=== PATIENT | female | born 1955 | race Caucasian/White ===

== ENCOUNTER 2016-06-30 07:08 | Inpatient (IN) | payer OTHER ==
[2016-06-30] VITALS (18 sets, daily range): BP systolic 55–73; BP diastolic 26–56; PULSE 57–83; RESP 14–26; TEMP 96.9; Ht 157.5 cm; Wt 99.1 kg
[~2016-06-30] VITALS: Ht 157.5 cm; Wt 99.1 kg
[~2016-06-30 07:08] MED LIST: COLE625T2 PO; GLIP-95 PO; NAPR-688 PO; SITA1TAB7 PO; TRIBENZOR; ZETIA
[2016-06-30] MEDS ORDERED: ONDANSETRON 4 MG INJ IV STA (07:20)
[2016-06-30 08:09] LABS: ADD SCAN DIFF NO
--- NOTE | 2016-06-30 08:10 | RADRPT ---
PROCEDURE: XR Chest. CLINICAL INDICATION: Shortness of breath. Upper GI bleed. TECHNIQUE: Single frontal view. COMPARISON: None. FINDINGS: The lungs are clear. The heart size is normal. There is no pleural effusion. There is no pneumothorax. IMPRESSION: 1. Normal chest radiograph. RPTAT: QQ .Partha Sue MD, MD Date Time Electronically viewed and signed by .Partha Sue MD, on 06/30/2016 08:10 .R/
[2016-06-30] MEDS ORDERED: SOD CHLORIDE 0.9% 1,000 ML IV STA ×3 (08:12→18:51)
[2016-06-30 08:13] LABS: ABNORMAL IP MESSAGE 1; BASOPHILS % 0.1 % (0.0-2.0); EOSINOPHILS # 0.1 10^3/ul (0.0-0.5); EOSINOPHILS % 0.9 % (0.0-7.0); HEMATOCRIT 14.3 % (37.0-47.0); LYMPHOCYTES # 5.1 10^3/ul (0.8-2.9); LYMPHOCYTES % 43.3 % (15.0-51.0); MEAN CORPUSCULAR VOLUME 89.4 fl (82.0-101.0); MEAN PLATELET VOLUME 10.1 fl (7.4-10.4); MONOCYTE # 1.2 10^3/ul (0.3-0.9); MONOCYTES % 10.3 % (0.0-11.0); NEUTROPHIL # 5.2 10^3/ul (1.6-7.5); NEUTROPHILS % 44.2 % (39.0-77.0); NUCLEATED RED BLOOD CELLS # 0.1 10^3/ul (0.0-0.0); NUCLEATED RED BLOOD CELLS% 1.1 /100WBC (0.0-0.0); PLATELET COUNT 267 10^3/UL (140-415); RED CELL DISTRIBUTION WIDTH 18.9 % (11.5-14.5); WHITE BLOOD COUNT 11.7 10^3/ul (4.8-10.8)
[2016-06-30] MEDS ORDERED: SOD CHLORIDE 0.9% 250 ML IV ONE (08:22)
[2016-06-30 08:34] LABS: INR 1.38; PT RATIO 1.3
[2016-06-30 08:35] LABS: PARTIAL THROMBOPLASTIN TIME 23.6 Sec (25.0-35.0)
[2016-06-30 08:38] LABS: ALANINE AMINOTRANSFERASE 87 IU/L (13-69); ALBUMIN 2.2 g/dl (3.3-4.9); ALBUMIN/GLOBULIN RATIO 0.68; ALKALINE PHOSPHATASE 324 IU/L (42-121); ANION GAP 17 (8-16); ASPARTATE AMINO TRANSFERASE 74 IU/L (15-46); BILIRUBIN,INDIRECT 0.1 mg/dl (0-1.1); BILIRUBIN,TOTAL 0.1 mg/dl (0.2-1.3); BLOOD UREA NITROGEN 13 mg/dl (7-20); CALCIUM 8.2 mg/dl (8.4-10.2); CARBON DIOXIDE 12 mmol/L (21-31); CHLORIDE 110 mmol/L (97-110); GLUCOSE 293 mg/dl (70-220); POTASSIUM 4.8 mmol/L (3.5-5.1); SODIUM 134 mmol/L (135-144); TOTAL PROTEIN 5.4 g/dl (6.1-8.1)
[2016-06-30 08:51] LABS: TROPONIN-I < 0.012 ng/ml (0.00-0.12)
[2016-06-30] MEDS ORDERED: SITA1TAB5 PO (09:22)
[2016-06-30] MEDS ORDERED: OLME1TAB29 PO (09:23)
[2016-06-30] MEDS ORDERED: EZET10TA3 PO (09:23)
--- NOTE | 2016-06-30 09:50 | RADRPT ---
PROCEDURE: CT Abdomen and Pelvis without contrast. CLINICAL INDICATION: Epigastric pain, nausea TECHNIQUE: CT of the abdomen and pelvis was performed on a multi-detector scanner without IV contr ast. Coronal and sagittal images were reformatted from the axial data set. One or more of the foll owing dose reduction techniques were used: automated exposure control, adjustment of the mA and/or kV according to patient size, use of iterative reconstruction technique. CTDI = 20.18 mGy. DLP = 11 56.49 mGy-cm. COMPARISON: None. FINDINGS: CT abdomen: The lung bases are clear. The heart size is normal, without pericardial effusion. Coronary arteria l calcifications are noted. The liver is cirrhotic. Gallbladder is surgically absent. Biliary samina e, pancreas, spleen, adrenal glands and kidneys are unremarkable except for a benign left renal cyst . No urolithiasis or obstructive uropathy is identified. The stomach is moderately distended and debris filled. Edema is noted adjacent to second and third portion of the duodenum, with question of wall thickening in this area. Prominent adjacent lymph no cherrie are seen measuring up to 16 mm in short axis diameter (3-83). The aorta is of normal caliber. There is no periaortic lymphadenopathy. CT pelvis: Small amount of ascites is noted. No bowel obstruction, free intraperitoneal air or abscess is iden tified. There is no diverticulosis, diverticulitis, or colitis. The appendix is well visualized an d normal. Urinary bladder is grossly unremarkable. Calcified uterine fibroids are seen measuring u p to 4 cm. No pelvic lymphadenopathy is identified. The surrounding osseous structures are remarkable for degenerative spondylosis of the spine. No ost eolytic or osteoblastic lesion is detected. Old, healed left-sided rib fractures are incidentally no fabiana. IMPRESSION: 1. Edema is seen adjacent to the second and third portion of the duodenum, with question of associa fabiana duodenal wall thickening. Prominent adjacent lymph nodes are noted. Proximally, the stomach is moderately distended and debris filled. Underlying duodenal mass/neoplasm, duodenitis, or duodenal ulcer disease is not excluded. Consider contrast enhanced CT and/or endoscopy for further evaluatio n. 2. The liver is cirrhotic. Small amount of ascites is present. 3. Gallbladder is surgically absent. 4. Coronary arterial calcifications are noted. 5. Calcified uterine fibroids are seen measuring up to 4 cm. RPTAT: EE .Sedrick Garg MD, MD Date Time Electronically viewed and signed by .Sedrick Garg MD, MD on 06/30/2016 09:49 .R/
[2016-06-30] MEDS ORDERED: INSULIN HUMAN REGULAR 100 UNIT in SOD CHLORIDE 0.9% 99 ML IV STA ×2 (09:59→11:16)
[2016-06-30] MEDS ORDERED: LACTATED RINGER'S 1,000 ML IV STA (09:59)
[2016-06-30] MEDS ORDERED: DEXTROSE 50% 50 ML SYRINGE IV PRN ×4 (10:30→15:30)
[2016-06-30] MEDS ORDERED: GLUCOSE GEL 15 GRAM TUBE PO PRN ×2 (10:30)
[2016-06-30] MEDS ORDERED: GLUCAGON 1 MG INJ IM PRN (10:30)
[2016-06-30] MEDS ORDERED: GLUCOSE GEL 15 GRAM TUBE BUCCAL PRN (10:30)
--- NOTE | 2016-06-30 10:44 | ERA ---
ER Documentation Chief Complaint Date/Time DATE: 06/30/16 TIME: 10:42 Chief Complaint VERY WEAK; MSHORTNESS OF BREATH, PALE, HX OF DIABETES HPI Patient is a 60-year-old female with hypertension and diabetes who presents with shortness of breath. She also feels diffusely weak. She took her normal medicines this morning. The symptoms started this morning. She has no pain. She has nausea and vomiting. She is pale but denies bleeding. She has no fever no cough. Upon review of old medical record she had one previous visit in 2011. ROS All systems reviewed and are negative except as per history of present illness. Medications Home Meds Reported Medications Zpkxezhshl-Wimbevjofz-IYGX (Tribenzor) 20-5-12.5 Mg Tablet, 1 TAB PO DAILY, TAB 06/30/16 Ezetimibe* (Zetia*) 10 Mg Tablet, 10 MG PO HS, TAB 06/30/16 Sitagliptin Phos/Metformin HCl (Janumet 50-1,000 mg Tablet) 1 Each Tablet, 1 EACH PO BID, TAB 06/30/16 Naproxen* (Naproxen*) 500 Mg Tablet, 500 MG PO BID 01/27/12 Colesevelam Hcl* (Welchol*) 625 Mg Tablet, 625 MG PO TID 01/27/12 Glipizide* (Glipizide*) 10 Mg Tablet, 10 MG PO BID 01/27/12 Discontinued Reported Medications [Zetia] No Conflict Check, 10 DAILY 01/27/12 [Tribenzor] No Conflict Check, 20 DAILY 01/27/12 Sitagliptin Phos-Metformin Hcl (Janumet) 1 Tab Tablet, 1 TAB PO BID 01/27/12 Allergies Allergies: Coded Allergies: No Known Drug Allergies (Verified Allergy, Unknown, 01/27/12) PMhx/Soc History of Surgery: Yes (S/P CHOLECYSTECTOMY) Anesthesia Reaction: No Hx Neurological Disorder: No Hx Respiratory Disorders: No Hx Cardiac Disorders: No Hx Psychiatric Problems: No Hx Miscellaneous Medical Probl: Yes (FATTY LIVER) Hx Alcohol Use: No Hx Substance Use: No Hx Tobacco Use: No Smoking Status: Never smoker FmHx Family History: No coronary disease Physical Exam Vitals Vital Signs Date Time Temp Pulse Resp B/P Pulse Ox O2 Delivery O2 Flow Rate FiO2 06/30/16 10:20 85 18 100/45 100 Room Air 5/2/17 10:10 97.7 83 18 106/45 100 Room Air 06/30/16 09:20 18 95/51 100 Room Air 06/30/16 09:00 18 106/49 100 Room Air 06/30/16 08:24 18 90/48 100 Room Air 06/30/16 07:10 98.0 97 19 104/51 100 Physical Exam Const: Moderate distress Head: Atraumatic Eyes: Pale conjunctivae ENT: Normal External Ears, Nose and Mouth. Neck: Full range of motion..~ No meningismus. Resp: Decreased breath sounds bilaterally Cardio: Regular rate and rhythm, no murmurs Abd: Soft, non tender, non distended. Normal bowel sounds Skin: Pale Back: No midline or flank tenderness Ext: No cyanosis, or edema Neur: Awake and alert Psych: Normal Mood and Affect Result Diagram: 06/30/16 0748 06/30/16 0748 Results 24 hrs Laboratory Tests Test 06/30/16 07:48 White Blood Count 11.710^3/ul Red Blood Count 1.6010^6/ul Hemoglobin 4.0g/dl Hematocrit 14.3% Mean Corpuscular Volume 89.4fl Mean Corpuscular Hemoglobin 25.0pg Mean Corpuscular Hemoglobin Concent 28.0g/dl Red Cell Distribution Width 18.9% Platelet Count 37667^3/UL Mean Platelet Volume 10.1fl Neutrophils % 44.2% Lymphocytes % 43.3% Monocytes % 10.3% Eosinophils % 0.9% Basophils % 0.1% Nucleated Red Blood Cells % 1.1/100WBC Neutrophils # 5.210^3/ul Lymphocytes # 5.110^3/ul Monocytes # 1.210^3/ul Eosinophils # 0.110^3/ul Basophils # 0.010^3/ul Nucleated Red Blood Cells # 0.110^3/ul Prothrombin Time 17.0Sec Prothrombin Time Ratio 1.3 INR International Normalized Ratio 1.38 Activated Partial Thromboplast Time 23.6Sec Sodium Level 134mmol/L Potassium Level 4.8mmol/L Chloride Level 110mmol/L Carbon Dioxide Level 12mmol/L Anion Gap 17 Blood Urea Nitrogen 13mg/dl Creatinine 0.70mg/dl Glucose Level 293mg/dl Calcium Level 8.2mg/dl Total Bilirubin 0.1mg/dl Direct Bilirubin 0.00mg/dl Indirect Bilirubin 0.1mg/dl Aspartate Amino Transf (AST/SGOT) 74IU/L Alanine Aminotransferase (ALT/SGPT) 87IU/L Alkaline Phosphatase 324IU/L Troponin I < 0.012ng/ml Total Protein 5.4g/dl Albumin 2.2g/dl Globulin 3.20g/dl Albumin/Globulin Ratio 0.68 Current Medications Medications (Trade) Dose Ordered Sig/Lacho Route PRN Reason Start Time Stop Time Status Last Admin Dose Admin Ondansetron HCl 4 mg 4 mg ONCE STAT IV 06/30/16 07:20 06/30/16 07:22 DC 06/30/16 07:44 Sodium Chloride 1,000 ml @ 1,000 mls/hr Q1H STAT IV 06/30/16 08:12 06/30/16 09:11 DC 06/30/16 08:19 Sodium Chloride 250 ml @ 0 mls/hr Q0M ONCE IV 06/30/16 08:22 06/30/16 08:24 DC 06/30/16 10:10 Sodium Chloride 1,000 ml @ 1,000 mls/hr Q1H STAT IV 06/30/16 09:59 06/30/16 10:58 06/30/16 10:32 Lactated Ringer's 1,000 ml @ 1,000 mls/hr Q1H STAT IV 06/30/16 09:59 06/30/16 10:58 Insulin Human Regular/Sodium Chloride (Novolin-R/NS) 100 ml @ 8 mls/hr ONCE STAT IV 06/30/16 09:59 06/30/16 22:28 Miscellaneous Information 1 ea NOTE XX 06/30/16 10:30 Glucose (Glutose) 15 gm Q15M PRN PO DECREASED GLUCOSE 06/30/16 10:30 Glucose (Glutose) 22.5 gm Q15M PRN PO DECREASED GLUCOSE 06/30/16 10:30 Dextrose (D50w Syringe) 25 ml Q15M PRN IV DECREASED GLUCOSE 06/30/16 10:30 Dextrose (D50w Syringe) 50 ml Q15M PRN IV DECREASED GLUCOSE 06/30/16 10:30 Glucagon (Glucagen) 1 mg Q15M PRN IM DECREASED GLUCOSE 06/30/16 10:30 Glucose (Glutose) 15 gm Q15M PRN BUCCAL DECREASED GLUCOSE 06/30/16 10:30 Procedures/MDM EKG read by me: Rate/Rhythm: Regular rate and rhythm at a rate of 91 Intervals: Normal Impression: No evidence of ischemia or arrhythmia CT abdomen and pelvis pending at this time. With hypertension and diabetes who presents with shortness of breath and weakness. She was found to have acute anemia with a hemoglobin of 4.0. She will need transfusion of 4 units of packed red blood cells which have been ordered. I am also concerned about acute diabetic ketoacidosis as her sugar is 293 with a bicarb of 12 and an elevated anion gap. However the acidosis is also possibly related to the severe anemia. In any case I will start the patient on an insulin drip without bolus. The patient will be given 2 L of normal saline 1 L of lactated Ringer's for fluid resuscitation. The patient will need admission to the intensive care unit. I spoke with Dr. Banks from the panel team for admission. Critical Care: Time: 40 minutes excluding all billable procedures. Treatments/Evaluations: Close monitoring and treatment of unstable vital signs, cardiorespiratory, and neurologic status, while maintaining tight balance of fluid, respiratory, and cardiac interventions. Departure Diagnosis: Primary Impression: Anemia Qualified Code: D64.9 - Anemia, unspecified type Additional Impressions: Shortness of breath DKA (diabetic ketoacidoses) Qualified Code: E13.10 - Diabetic ketoacidosis without coma associated with other specified diabetes mellitus Condition: Critical DAISY NGUYEN MD June 30, 2016 10:44
[2016-06-30] MEDS ORDERED: DEXTROSE 5%-0.45% NACL 1,000 ML IV PRN (15:23)
[2016-06-30] MEDS ORDERED: SOD CHLORIDE 0.9% 1,000 ML IV PRN (15:23)
[2016-06-30] MEDS ORDERED: INSULIN HUMAN REGULAR 100 UNIT in SOD CHLORIDE 0.9% 99 ML IV SCH (15:30)
[2016-06-30] MEDS ORDERED: ONDANSETRON 4 MG INJ IV PRN (15:30)
[2016-06-30] MEDS ORDERED: ACCU-CHEK XX SCH (15:30)
[2016-06-30] MEDS ORDERED: SUCCINYLCHOLINE CHLORIDE 100 MG/5 ML SYG IV STA (16:30)
[2016-06-30] MEDS ORDERED: ETOMIDATE 20 MG INJ IV STA (16:30)
[2016-06-30] MEDS ORDERED: EPINEPHrine 0.1 MG/ML SYG ONE (16:44)
--- NOTE | 2016-06-30 16:57 | RADRPT ---
PROCEDURE: XR Chest. CLINICAL INDICATION: Check endotracheal tube position. TECHNIQUE: Single frontal view. COMPARISON: 06/30/2016. 0800 hours. FINDINGS: The endotracheal tube tip is in the right mainstem bronchus and should be retracted 2.5 cm. The rig ht lung is clear. The left lung is almost completely collapsed. The heart size is normal. There is no pleural effusion. There is no pneumothorax. IMPRESSION: 1. Endotracheal tube tip in the right mainstem bronchus and should be retracted 2.5 cm. 2. The left lung is almost completely collapsed. Call report: A call report of the findings was made to Dr. Robert on 06/30/2016 at 1655 hours. RPTAT: QQ .Partha Sue MD, Date Time Electronically viewed and signed by .Partha Sue MD, MD on 06/30/2016 16:56 .R/
[2016-06-30] MEDS ORDERED: NORepinephrine 8MG/250 ML (PMX 250 ML ONE (17:02)
[2016-06-30 17:18] LABS: CALCIUM 7.7 mg/dl (8.4-10.2); CREATININE 1.13 mg/dl (0.44-1.00)
[2016-06-30 17:24] LABS: POTASSIUM 6.2 mmol/L (3.5-5.1)
[2016-06-30] MEDS ORDERED: ALBUTEROL 0.5% (NEB) 2.5 MG/0.5 ML AMP INH STA (17:24)
[2016-06-30] MEDS ORDERED: NA BICARBONATE 8.4% 50 ML SYG IV STA (17:24)
[2016-06-30] MEDS ORDERED: CA CHLORIDE 10% 10 ML SYRINGE IV STA (17:24)
[2016-06-30] MEDS ORDERED: FUROSEMIDE 40 MG INJ IV STA (17:24)
[2016-06-30] MEDS ORDERED: DOPamine-D5W 1.6 MG/ML 250 ML ONE (17:58)
[2016-06-30] MEDS ORDERED: PANTOPRAZOLE 40 MG INJ IV SCH (18:00)
[2016-06-30] MEDS ORDERED: DOPamine-D5W 1.6 MG/ML 250 ML IV STA (18:12)
--- NOTE | 2016-06-30 18:26 | CONS ---
Date/Time of Note Date/Time of Note DATE: 06/30/16 TIME: 17:57 Assessment/Plan Assessment/Plan Additional Assessment/Plan Assessment * Anemia * Hematemesis * Upper GI v Lower GI * Respiratory failure due to anemia * Diabetes Mellitus per primary * Hypertension per primary * Plan * EGD risks and benefit explained to family agreed with planned procedure * Continue blood transfusion * continue present management Consultation Date/Type/Reason Admit Date/Time Date of Consultation: June 30, 2016 Type of Consultation: Gastroenterology Reason for Consultation anemia/hematemesis Referring Provider: LAYNE HEBERT Hx of Present Illness 60 year old with past medical history of Diabetes and hypertension coming to emergency room with chief complaint of shortness of breath and body weakness.Patient had just travelled to [facility],denies any fever ,cough nor abdominal pain.Hemoglobin revealed severe anemia with hemoglobin 4. CT abdomen/Pelvis revealed . Edema is seen adjacent to the second and third portion of the duodenum, with question of associated duodenal wall thickening. Prominent adjacent lymph nodes are noted. Proximally, the stomach is moderately distended and debris filled. Underlying duodenal mass/neoplasm, duodenitis, or duodenal ulcer disease is not excluded. Consider contrast enhanced CT and/or endoscopy for further evaluation.. The liver is cirrhotic. Small amount of ascites is present. Gallbladder is surgically absent.. Coronary arterial calcifications are noted.. Calcified uterine fibroids are seen measuring up to 4 cm. Blood transfusion was started until 1800 patient went to bathroom came back with dyspnea and eventually intubated.On insertion of NGT 300 cc of fresh whole blood was aspirated,patient was hypotensive.Presently 3rd bag of blood is running ,Levophed 30 uggts.Blood pressure hypotensive at 60/40,HR 88. Spoke with the son regarding the plan EGD agreed with the planned procedure.K 6.5 Past Medical History Medical History: diabetes, hypertension Past Surgical History Past Surgical Hx: cholecystectomy Family History Significant Family History: no pertinent family hx Social History Alcohol Use: none Smoking Status: Never smoker Exam/Review of Systems Vital Signs Vitals Vital Signs Date Time Temp Pulse Resp B/P Pulse Ox O2 Delivery O2 Flow Rate FiO2 06/30/16 17:09 55 21 57 100 06/30/16 11:10 98.0 110/44 Room Air Exam Constitutional: frail, other (intubated) Head: normocephalic Eyes: nl sclera, other (pale) ENMT: intubated Neck: non-tender, supple Respiratory: clear to auscultation, diminished breath sounds, normal air movement, other (ventilator) Cardiovascular: other (weak pulses), regular rate and rhythm Gastrointestinal: bowel sounds, distended, soft Musculoskeletal: nl extremities to inspection Extremities: other (weak pulses) Neurological: unresponsive Skin: rash or lesions Lymph: nl lymph nodes Results Result Diagram: 06/30/16 0748 06/30/16 1650 Results 24 hrs Laboratory Tests Test 06/30/16 07:48 06/30/16 11:15 06/30/16 12:20 06/30/16 13:13 White Blood Count 11.7 H Red Blood Count 1.60 L Hemoglobin 4.0 *L Hematocrit 14.3 L Mean Corpuscular Volume 89.4 Mean Corpuscular Hemoglobin 25.0 L Mean Corpuscular Hemoglobin Concent 28.0 L Red Cell Distribution Width 18.9 H Platelet Count 267 Mean Platelet Volume 10.1 Neutrophils % 44.2 Lymphocytes % 43.3 Monocytes % 10.3 Eosinophils % 0.9 Basophils % 0.1 Nucleated Red Blood Cells % 1.1 H Neutrophils # 5.2 Lymphocytes # 5.1 H Monocytes # 1.2 H Eosinophils # 0.1 Basophils # 0.0 Nucleated Red Blood Cells # 0.1 H Prothrombin Time 17.0 H Prothrombin Time Ratio 1.3 INR International Normalized Ratio 1.38 Activated Partial Thromboplast Time 23.6 L Sodium Level 134 L Potassium Level 4.8 Chloride Level 110 Carbon Dioxide Level 12 L Anion Gap 17 H Blood Urea Nitrogen 13 Creatinine 0.70 Glucose Level 293 H Calcium Level 8.2 L Total Bilirubin 0.1 L Direct Bilirubin 0.00 Indirect Bilirubin 0.1 Aspartate Amino Transf (AST/SGOT) 74 H Alanine Aminotransferase (ALT/SGPT) 87 H Alkaline Phosphatase 324 H Troponin I < 0.012 Total Protein 5.4 L Albumin 2.2 L Globulin 3.20 Albumin/Globulin Ratio 0.68 Bedside Glucose 194 195 183 Test 06/30/16 14:26 06/30/16 15:58 06/30/16 16:50 06/30/16 17:52 Bedside Glucose 163 171 86 Sodium Level 141 Potassium Level 6.2 *H Chloride Level 115 H Carbon Dioxide Level 7 #*L Anion Gap 25 #H Blood Urea Nitrogen 21 H Creatinine 1.13 H Glucose Level 115 # Calcium Level 7.7 L Magnesium Level 2.2 Medications Medications Current Medications Miscellaneous Information 1 ea NOTE XX ; Start 06/30/16 at 10:30 Glucose (Glutose) 15 gm Q15M PRN PO DECREASED GLUCOSE; Start 06/30/16 at 10:30 Glucose (Glutose) 22.5 gm Q15M PRN PO DECREASED GLUCOSE; Start 06/30/16 at 10:30 Dextrose (D50w Syringe) 25 ml Q15M PRN IV DECREASED GLUCOSE; Start 06/30/16 at 10:30 Dextrose (D50w Syringe) 50 ml Q15M PRN IV DECREASED GLUCOSE; Start 06/30/16 at 10:30 Glucagon (Glucagen) 1 mg Q15M PRN IM DECREASED GLUCOSE; Start 06/30/16 at 10:30 Glucose (Glutose) 15 gm Q15M PRN BUCCAL DECREASED GLUCOSE; Start 06/30/16 at 10: 30 Colesevelam HCl (Welchol) 625 mg TID PO ; Start 06/30/16 at 21:00; Status UNV EZETIMIBE (Zetia) 10 mg HS PO ; Start 06/30/16 at 21:00; Status UNV Losartan Potassium (Cozaar) 100 mg DAILY PO ; Start 07/01/16 at 09:00 Dextrose (D50w Syringe) 50 ml Q15M PRN IV For BS 50 or less; Start 06/30/16 at 15:30 Dextrose (D50w Syringe) 25 ml Q15M PRN IV BS between 50-70; Start 06/30/16 at 15 :30 Diagnostic Test (Pha) 1 ea 1 ea Q1H XX ; Start 06/30/16 at 15:30; Status UNV Sodium Chloride 1,000 ml @ 125 mls/hr Q8H PRN IV when BS is 125 mg/dl or more; Start 06/30/16 at 15:23 Dextrose/Sodium Chloride (D5-1/2ns) 1,000 ml @ 125 mls/hr Q8H PRN IV when BS is 124mg/dl or less; Start 06/30/16 at 15:23 Ondansetron HCl (Zofran Inj) 4 mg Q6H PRN IV NAUSEA AND/OR VOMITING; Start 06/30 at 15:30 Docusate Sodium (Colace) 200 mg BID PO ; Start 06/30/16 at 21:00 Amlodipine Besylate (Norvasc) 5 mg DAILY PO ; Start 07/01/16 at 09:00 Hydrochlorothiazide (Hydrochlorothiazide) 12.5 mg DAILY PO ; Start 07/01/16 at 09 :00 Pantoprazole (Protonix Iv) 40 mg BID@,18 IV ; Start 06/30/16 at 18:00 SHARLENE SESAY MD June 30, 2016 18:15
[2016-06-30] MEDS ORDERED: NORepinephrine 8MG/250 ML (PMX 250 ML IV STA ×2 (18:34→20:59)
[2016-06-30 18:38] LABS: AADO2 Arterial 615.2 mmHg (7.0-24.0); Allen Test ACCEPTAB; Arterial Base Excess -29.6 mmol/L (-3.0-3); Arterial COHb 0.3 % (0.0-3.0); Arterial Fraction of Oxyhgb 61.9 % (93.0-99.0); Arterial HCO3 5.2 mmol/L (22.0-26.0); Arterial MetHb 1.2 % (0.0-1.5); Arterial Total Hemglobin 7.3 g/dl (12.0-18.0); Blood Gas Low PEEP Setting 0 cmH2O; MODE VENT - AC
[2016-06-30] MEDS ORDERED: EPINEPHrine 0.1 MG/ML SYG IV STA (19:15)
--- NOTE | 2016-06-30 19:32 | EN ---
Date/Time of Note Date/Time of Note DATE: 06/30/16 TIME: 19:18 ER Progress Note This is a 60-year-old female that had been admitted to the hospital for anemia as she had a new onset anemia with previous history of anemia and a hemoglobin of 4.0. She had been signed out to myself by the previous ER physician Dr. Altamirano as she was awaiting a bed and admitted to the hospitalist Dr. Banks. Nursing staff approached me several hours into my shift and indicated that the patient was becoming more altered, hypoxic and was attempting to remove her IV lines she had ripped out her right sided peripheral line in the antecubital position. When I arrived to the bedside the patient was tachycardic with a heart rate of 110, severe hypoxia at 80% which slightly improved when the patient was placed on a nonrebreather to 85%, diffuse pallor and diaphoresis and hypotensive with a blood pressure of 50/40. The patient had received 1 unit of packed red blood cells and was currently receiving the second unit of packed red blood cells according to the nurse. The patient had been placed on an insulin drip by the previous ER physician, I am assuming due to the anion gap , and therefore at this time I checked an Accu-Chek and it was normal at 86. The insulin drip was stopped by myself. Due to impending airway failure and severe hypoxia the patient at this time was electively intubated using RSI. The patient received 10 mg of etomidate followed by 100 mg of succinylcholine. A 7.50 endotracheal tube is seen in past going to the courts by myself but at this time the patient had a significant amount of bright red blood present in her oropharynx and upon suctioning was coming from the esophagus. There was concern for aspiration and a chest radiograph indicated ordered by myself for postintubation indicated a left lung collapse and therefore at this time the endotracheal tube was removed 2.5 cm as this appeared to be in the right mainstem bronchi. The tube was now confirmed to be in good placement with condensation seen within the tube, repeat chest radiograph however breath sounds were still slightly diminished on the left compared to the right. The patient was severely hypotensive at this time with a blood pressure of 58/ 40. She had an episode of bradycardia which appeared junctional heart rate of 40. I administered 1 mg of epinephrine to improve the patient's blood pressure and heart rate temporarily as it was now placing a central line. The patient was critically ill and required central venous access. The patient' s son was at bedside to consent and after was prepped and draped in a sterile fashion. Time out performed and the right femoral vein was cannulated using the Seldinger technique after anesthesia administered with 1% lidocaine locally. A triple lumen catheter used. The guidewire was easily thread into the vessel. The guidewire was retrieved, removed and disposed of. All three ports zulema back venous blood and flushed easily. The line was secured in place with 2 simple interrupted sutures and a biostat was applied over the area in inoculation. The patient tolerated the procedure well with no complications. ED Ultrasound: Central line placed by me using concurrent ultrasound guidance. Real time image archived in the medical record confirms vascular anatomy. At this time the patient's blood transfusion was still taking place in a repeated the laterally panel. She was hyperkalemic with a potassium of 6.7 and treated with an amp of bicarb, an amp of calcium chloride, continuous albuterol and Lasix was not given due to the fact that the patient was hypotensive. She was placed on levo fed with no improvement of her blood pressure and therefore was placed on dopamine. Patient continued to have her blood transfused and IV fluids with a rapid transfuser. I had phoned and informed the admitting physician Dr. Banks of the patient's change in medical condition and grave prognosis. Dr. Andrews, the GI physician, immediately came to perform an emergent endoscopy is an NG tube had been placed and the patient was actively bleeding bright red blood with roughly 500 cc obtained with continuous suctioning. The patient was emergently taken to the GI lab with the OR team and the ICU nurse. The patient had not been placed on sedation in order to assess her neurological function as the patient was withdrawing to pain but remained with her eyes closed and no active movements of her upper or lower extremities. I repeated the EKG. 12 Lead EKG tracing ordered and reviewed by myself showed at 1810: Normal sinus rhythm of 77 bpm and no arrhythmia. OR interval normal. QRS duration normal. No ST segment elevation No ST segment depression. No changes consistent with acute ischemia. Critical Care: Time: 75 minutes Treatments/Evaluations: Close monitoring and treatment of unstable vital signs, cardiorespiratory, and neurologic status, while maintaining tight balance of fluid, respiratory, and cardiac interventions. Time does not include performing any of the above billable procedures. MARTHA LOERA June 30, 2016 19:31
--- NOTE | 2016-06-30 19:36 | RADRPT ---
PROCEDURE: XR Chest. CLINICAL INDICATION: Endotracheal tube repositioned TECHNIQUE: Single frontal view of the chest was obtained COMPARISON: 06/30/2016 at 04:43 p.m. FINDINGS: The patient is rotated to the left which limits evaluation. The tip of the endotracheal tube appear s to be approximately 1.4 cm above the atul. Nasogastric tube in stomach with tip not visualized o n the radiograph. Hypoinflation of the lungs. Enlargement of the cardiomediastinal silhouette agai n seen. ECG leads projected over the chest. Degenerative changes in thoracic spine. Mild pulmonar y vascular congestion increased compared to previous study. Increased density in the left lower cory g again seen consistent with atelectasis and possible infiltrate/pulmonary edema. IMPRESSION: Patient rotated which limits evaluation. Endotracheal tube tip approximately 1.4 cm above the cara a. Enlargement of cardiac silhouette again seen. Mild pulmonary vascular congestion increased compar ed to previous study. Increased density in the left lower lung again seen consistent with atelectasi s and possible infiltrate/pulmonary edema. Please see above. RPTAT: HJES .Preet Collins MD, MD Date Time Electronically viewed and signed by .Preet Collins MD, MD on 06/30/2016 19:36 .S/
[2016-06-30] MEDS ORDERED: OCTREOTIDE 50 MCG in SOD CHLORIDE 0.9% 50 ML IVPB ONE (20:00)
[2016-06-30] MEDS ORDERED: PHENYLephrine 20MG IN 250 ML 250 ML ONE (20:24)
[2016-06-30 20:58] LABS: ADD SCAN DIFF NO
[2016-06-30 21:00] LABS: ABNORMAL IP MESSAGE 1; HEMATOCRIT 25.2 % (37.0-47.0); HEMOGLOBIN 7.4 g/dl (12.0-16.0); MEAN CORPUSCULAR HEMOGLOBIN 28.9 pg (29.0-33.0); MEAN CORPUSCULAR HGB CONC 29.4 g/dl (32.0-37.0); MEAN CORPUSCULAR VOLUME 98.4 fl (82.0-101.0); MEAN PLATELET VOLUME 10.1 fl (7.4-10.4); PLATELET COUNT 111 10^3/UL (140-415); RED BLOOD COUNT 2.56 10^6/ul (4.20-5.40); RED CELL DISTRIBUTION WIDTH 15.8 % (11.5-14.5); WHITE BLOOD COUNT 15.5 10^3/ul (4.8-10.8)
[2016-06-30] MEDS ORDERED: FAMOTIDINE 20 MG INJ IV SCH (21:00)
[2016-06-30] MEDS: DOCUSATE SODIUM 100 MG CAP PO SCH (21:00)
[2016-06-30] MEDS ORDERED: EZETIMIBE 10 MG TAB PO SCH (21:00)
[2016-06-30] MEDS ORDERED: EPINEPHrine 4 MG in SOD CHLORIDE 0.9% 246 ML IV SCH (21:00)
[2016-06-30] MEDS: VASOPRESSIN 60 UNIT in DEXTROSE 5% 57 ML IV SCH (21:00)
[2016-06-30] MEDS: COLESEVELAM 625 MG TAB PO SCH (21:00)
[2016-06-30] MEDS: PHENYLephrine 20MG IN 250 ML 250 ML IV SCH ×2 (21:00→23:30)
[2016-06-30 21:19] LABS: ALBUMIN 1.3 g/dl (3.3-4.9)
[2016-06-30 21:21] LABS: BILIRUBIN,INDIRECT 0.5 mg/dl (0-1.1); BILIRUBIN,TOTAL 0.5 mg/dl (0.2-1.3); CREATININE 1.12 mg/dl (0.44-1.00)
[2016-06-30 21:22] LABS: ALBUMIN/GLOBULIN RATIO 0.61; CALCIUM 6.8 mg/dl (8.4-10.2); TOTAL PROTEIN 3.4 g/dl (6.1-8.1)
[2016-06-30 21:28] LABS: POTASSIUM 6.1 mmol/L (3.5-5.1)
[2016-06-30 21:36] LABS: LYMPHOCYTES # 5.9 10^3/ul (0.8-2.9); MONOCYTE # 0.6 10^3/ul (0.3-0.9); MYELOCYTES # 0.3; NEUTROPHIL # 6.2 10^3/ul (1.6-7.5)
--- NOTE | 2016-06-30 21:49 | HP ---
DATE OF ADMISSION: 06/30/2016 TIME: About 1300 hours. PRESENTING COMPLAINT: Lethargy. HISTORY OF PRESENTING COMPLAINT: A 60-year-old obese female who is Swedish speaking only who was se en in the ER today after she had presented with severe lethargy and some chills. The patient report s that over the last week she has just been feeling lethargic and tired. She has had a poor appetit e but no fever. She denies chest pain. She denies passing-out episodes. She denies shortness of b reath. She denies fever. She just has an overall feeling of feeling sick. Denies hematuria. Sha es blood in her stools and denies black stools. There were no passing-out episodes, no headaches, n o focal neurologic signs. Preliminary evaluation in the emergency room found patient to be hypergly cemic and acidotic, and she was also found to be severely anemic with a hemoglobin of 4. She is tiago ng admitted for further management and care. She is started on packed red cell transfusion by the e mergency room at this time. PAST MEDICAL HISTORY: Positive for: 1. High blood pressure. 2. Diabetes. 3. Dyslipidemia. 4. Chronic arthritis. SURGICAL HISTORY: Cholecystectomy in the past. ALLERGIES: NO KNOWN DRUG ALLERGIES. SOCIAL HISTORY: Denies tobacco, alcohol or illicit drug use. FAMILY HISTORY: Noncontributory. REVIEW OF SYSTEMS: A 12-point review of systems was done. Pertinent findings per HPI. PHYSICAL EXAMINATION: VITAL SIGNS: Temperature 98.0, pulse 88, respirations 18, blood pressure 110/44, saturations 100% o n room air. GENERAL: I found an obese female, alert, oriented, somewhat anxious but comfortable, not in severe pain. HEENT: Head normocephalic. Pupils equal and reactive. Mild conjunctival pallor. No scleral jaund ice. Mucous membranes moist. Posterior pharynx clear of erythema and exudate. NECK: Supple with adenopathy. CHEST: Clear to auscultation. CARDIOVASCULAR: S1 and S2 without added sounds or murmurs. ABDOMEN: Obese, soft, nontender, nondistended with normoactive bowel sounds. EXTREMITIES: No lower extremity edema. SKIN: Devoid of rash or jaundice. LABORATORY VALUES: 1. Leukocytosis 11,000. 2. Severe anemia, hemoglobin of 4. 3. Low MCH and low MCHC. 4. Normal platelet count. 5. No neutrophilia. 6. Acidotic with a carbon dioxide level of 12 and a serum glucose of 293. LFTs were slightly eleva fabiana with AST 74, ALT 87 and alkaline phosphatase 324. Troponin is negative. 7. Coagulation profile: INR is 1.3. PT is just mildly elevated. IMAGING: Chest x-ray showed normal lungs and heart size without acute cardiopulmonary abnormality, and a CT of the abdomen and pelvis was concerning for edema in the second and third portion of the d uodenum with a question of associated duodenal wall thickening, prominent adjacent lymph nodes. Sto mach moderately distended and debris filled concerning for underlying duodenal mass or neoplasm, duo denitis or a duodenal ulcer. Also noted is cirrhotic liver with some ascites, a surgically absent g allbladder, coronary artery calcifications and calcified uterine fibroid. ASSESSMENT: A 60-year-old female who had presented with severe lethargy for like the past 1 week, m anaged as follows. 1. Severe symptomatic anemia with hemoglobin of 4. 2. Metabolic acidosis, likely secondary to mild diabetic ketoacidosis. 3. Transaminitis, likely secondary to chronic liver cirrhosis. 4. Duodenal wall thickening and edema concerning for probably neoplasm versus duodenitis which coul d be causing occult gastrointestinal bleeding leading to symptomatic anemia. 5. Status post cholecystectomy. 6. Obesity. 7. High blood pressure, controlled. 8. Diabetes type 2, uncontrolled at this time. PLAN OF CARE: The patient is to be admitted to the intensive care unit on the insulin drip. She pickard s been commenced with a transfusion of packed red cells by the emergency room doctor. I believe 2 u nits have been planned for transfusion. I will recheck her levels after that. The patient will als o get a stool occult blood test, and a GI consult will be obtained. She will be put on intravenous PPI therapy. For now, she will be kept n.p.o. Further interventions will depend on her clinical co urse. We will closely monitor her electrolytes and intervene as indicated. The patient will benefi t from ICU care. For prophylaxis, she will be on SCDs as well as PPI therapy, and as mentioned zakia ier, further interventions will depend on her clinical course. I have discussed this plan of care w ith the patient and her daughter, who is at the bedside. I have answered questions. Dictated By: LAYNE HEBERT MD BA/NTS Conf#: [id number] DID#: [id number]
[2016-06-30] MEDS ORDERED: INSULIN ASPART [NOVOLOG] 3 ML PEN SC ONE (22:30)
[2016-06-30] MEDS: OCTREOTIDE 1 MG in SOD CHLORIDE 0.9% 95 ML IV SCH (22:45)
[2016-06-30 22:51] LABS: AADO2 Arterial 531.3 mmHg (7.0-24.0); Arterial Base Excess -19.1 mmol/L (-3.0-3); Arterial COHb 0 % (0.0-3.0); Arterial Fraction of Oxyhgb 96.1 % (93.0-99.0); Arterial HCO3 11.3 mmol/L (22.0-26.0); Arterial MetHb 0.8 % (0.0-1.5); Arterial Total Hemglobin 6.8 g/dl (12.0-18.0); MODE VENT - AC
[2016-06-30] MEDS: PANTOPRAZOLE IV 80 MG in SOD CHLORIDE 0.9% 100 ML IV SCH ×3 (23:00)
[2016-06-30] MEDS: DOPamine-D5W 1.6 MG/ML 250 ML IV SCH (23:00)
[2016-07-01] VITALS (79 sets, daily range): BP systolic 32–106; BP diastolic 11–86; PULSE 0–103; RESP 0–26
[2016-07-01 00:47] LABS: HEMOGLOBIN 6.5 g/dl (12.0-16.0)
[2016-07-01] MEDS: PHENYLephrine 40 MG in DEXTROSE 5% 496 ML IV SCH ×5 (01:00→11:50)
[2016-07-01 01:07] LABS: ADD SCAN DIFF NO
[2016-07-01 01:37] LABS: ABNORMAL IP MESSAGE 1; HEMATOCRIT 20.9 % (37.0-47.0); MEAN CORPUSCULAR HEMOGLOBIN 30.4 pg (29.0-33.0); MEAN CORPUSCULAR HGB CONC 31.1 g/dl (32.0-37.0); MEAN CORPUSCULAR VOLUME 97.7 fl (82.0-101.0); MEAN PLATELET VOLUME 9.9 fl (7.4-10.4); RED BLOOD COUNT 2.14 10^6/ul (4.20-5.40); RED CELL DISTRIBUTION WIDTH 15.8 % (11.5-14.5); WHITE BLOOD COUNT 12.2 10^3/ul (4.8-10.8)
[2016-07-01 01:47] LABS: HEMOGLOBIN 6.5 g/dl (12.0-16.0); PLATELET COUNT 79 10^3/UL (140-415)
[2016-07-01 02:44] LABS: LYMPHOCYTES # 1.8 10^3/ul (0.8-2.9); MONOCYTE # 0.7 10^3/ul (0.3-0.9); MYELOCYTES # 0.1; NEUTROPHIL # 6.1 10^3/ul (1.6-7.5); PLATELET ESTIMATE PLT APPEAR DECREASED
[2016-07-01 03:01] LABS: CALCIUM 6.6 mg/dl (8.4-10.2); CREATININE 1.27 mg/dl (0.44-1.00)
[2016-07-01 03:07] LABS: POTASSIUM 7.1 mmol/L (3.5-5.1)
[2016-07-01] MEDS ORDERED: INSULIN ASPART [NOVOLOG] 3 ML PEN SC ONE (04:00)
[2016-07-01] MEDS ORDERED: DEXTROSE 50% 50 ML SYRINGE IV ONE (04:00)
[2016-07-01] MEDS: DOPamine-D5W 1.6 MG/ML 250 ML IV SCH ×4 (04:00→16:13)
--- NOTE | 2016-07-01 04:16 | GILP ---
DATE OF PROCEDURE: PROCEDURE: Emergency Esophagogastroduodenoscopy with endoscopic variceal ligation x10 (2 kits were used.) BRIEF HISTORY AND INDICATIONS: The patient with active upper gastrointestinal bleeding, severe hypo tension, starting hemoglobin of 4, has received 4 units packed red cells. PREMEDICATION: The patient is intubated and received general anesthesia. SURGEON: Sharlene Andrews MD INSTRUMENT USED: Olympus panendoscope. TECHNIQUE: After informed consent, with the patient/relatives understanding the procedure, its indic ations, potential risks and complications, including but not limited to: allergic reaction, bleeding , perforation or infection, and after all pertinent questions were answered to the patients satisfac tion, the patient/relatives signed witnessed informed consent. Following this, premedication was administered slowly IV push under careful cardiovascular and respi ratory monitoring with pulse oximetry, automatic blood pressure and tornado chaser. Once the sedative effect was achieved the patient was place in the left lateral decubitus, the panen doscope was introduced and advanced under visual control. Careful examination of the upper gastrointestinal tract, both on insertion as well as withdrawal of the instrument disclosed the following findings: ESOPHAGUS: The esophagus shows massive amounts of blood. Upon suctioning, we identified an activel y bleeding varix in the mid to distal esophagus. There are other large esophageal varices graded as IV/IV. STOMACH: The stomach was briefly examined and shows no evidence of accumulation or alternative blee ding lesions. PYLORUS: The pylorus appears patent and within normal limits, with no evidence of gastric outlet ob struction. DUODENUM: The duodenal shows small amounts of blood with no active accumulation or bleeding lesions . The instrument was then withdrawn. We applied the banding device to the endoscope and then reintrod uced and proceeded to band the area or the varix that appeared to be actively bleeding in the mid to distal esophagus, and then we approached the distal esophageal varices, initially moving proximally , banding any varix that appeared to be prominent at this point. After utilizing one set of bandings, a second set was utilized. In total, we applied 10 bands to th e most prominent variceal channels. There appeared to be no active bleeding at the end of the proce dure. IMPRESSION: Actively bleeding esophageal varix in the mid to distal esophagus. Grade IV/IV esophag eal varices. Post-endoscopic variceal ligation x10 pain with control of bleeding. PLAN: The patient will continued on octreotide and Protonix drips, monitored H and H, transfuse to a hemoglobin of 7.5, transfused fresh frozen plasma, close observation. NG tube has been discontinu ed. Dictated By: SHARLENE ANDREWS MS/HAILEY Conf#: [id number] DID#: [id number]
[2016-07-01 06:03] LABS: ADD SCAN DIFF NO
[2016-07-01 06:24] LABS: ABNORMAL IP MESSAGE 1; HEMATOCRIT 27.4 % (37.0-47.0); HEMOGLOBIN 8.4 g/dl (12.0-16.0); MEAN CORPUSCULAR HEMOGLOBIN 30.7 pg (29.0-33.0); MEAN CORPUSCULAR HGB CONC 30.7 g/dl (32.0-37.0); MEAN PLATELET VOLUME 9.9 fl (7.4-10.4); PLATELET COUNT 64 10^3/UL (140-415); RED BLOOD COUNT 2.74 10^6/ul (4.20-5.40); RED CELL DISTRIBUTION WIDTH 16.6 % (11.5-14.5); WHITE BLOOD COUNT 12.6 10^3/ul (4.8-10.8)
[2016-07-01] MEDS: PANTOPRAZOLE IV 80 MG in SOD CHLORIDE 0.9% 100 ML IV SCH ×2 (07:00→15:18)
[2016-07-01 07:48] LABS: ALBUMIN 1.5 g/dl (3.3-4.9); BILIRUBIN,INDIRECT 0.6 mg/dl (0-1.1); BILIRUBIN,TOTAL 0.6 mg/dl (0.2-1.3); CALCIUM 6.3 mg/dl (8.4-10.2); CREATININE 1.43 mg/dl (0.44-1.00); TOTAL PROTEIN 3.5 g/dl (6.1-8.1)
[2016-07-01 07:50] LABS: POTASSIUM 7.7 mmol/L (3.5-5.1)
[2016-07-01 08:15] LABS: THYROID STIMULATING HORMONE 2.02 MIU/L (0.465-4.680)
[2016-07-01] MEDS: COLESEVELAM 625 MG TAB PO SCH ×2 (09:00→13:00)
[2016-07-01] MEDS ORDERED: AMLODIPINE 5 MG TAB PO SCH (09:00)
[2016-07-01] MEDS: DOCUSATE SODIUM 100 MG CAP PO SCH (09:00)
[2016-07-01] MEDS ORDERED: LOSARTAN 50 MG TAB PO SCH (09:00)
[2016-07-01] MEDS ORDERED: HYDROCHLOROTHIAZIDE 12.5 MG CAP PO SCH (09:00)
[2016-07-01] MEDS: VASOPRESSIN 60 UNIT in DEXTROSE 5% 57 ML IV SCH (09:19)
[2016-07-01] MEDS: PHENYLephrine 20MG IN 250 ML 250 ML IV SCH (09:28)
--- NOTE | 2016-07-01 10:07 | RADRPT ---
PROCEDURE: Chest Radiograph. CLINICAL INDICATION: Endotracheal tube placement TECHNIQUE: Single frontal chest radiograph. COMPARISON: Chest radiograph 06/30/2016 FINDINGS: There has been interval placement of endotracheal tube. The distal tips approximately 1.5 cm above the atul. Heart size is poorly evaluated. The right lung remains clear . There has been interva l increased hazy opacification of the left lung which is nonspecific but may be related to left uppe r lobe collapse. There is new patchy opacification of the left lung base.. The bones are intact. IMPRESSION: 1. Interval development of hazy opacification of the left lung which is nonspecific, however, left upper lobe collapse could have this appearance. This can be further evaluated with lateral view of t he chest or CT chest if clinically indicated. Alternatively, a repeat chest radiograph could be obta ined. 2. Interval placement of endotracheal tube with distal tip approximate 1.5 cm above the atul. RPTAT: KK .Emmanuel Orosco MD, MD Date Time Electronically viewed and signed by .Emmanuel Orosco MD, on 07/01/2016 10:06 .B/
[2016-07-01 10:27] LABS: BURR CELLS 1+; LYMPHOCYTES # 1.4 10^3/ul (0.8-2.9); MONOCYTE # 0.1 10^3/ul (0.3-0.9); MYELOCYTES # 0.4; NEUTROPHIL # 7.8 10^3/ul (1.6-7.5)
[2016-07-01 10:28] LABS: POLYCHROMASIA RARE
--- NOTE | 2016-07-01 10:36 | PN ---
Date/Time of Note Date/Time of Note DATE: 07/01/16 TIME: 09:49 Assessment/Plan VTE Prophylaxis VTE Prophylaxis Intervention: contraindicated VTE Contraindication Reason: thrombocytopenia Lines/Catheters IV Catheter Type (from Nrsg): Central Line Central line still needed: Yes Assessment/Plan Assessment/Plan 60 yo unfortunate female with 1. Acute encephalopathy 2/2 #2 with probable brain 2. Acute resp failure with acute sudden left lung collapse. Cause differentials include pulmonary emboli versus aspiration 3. Severe GI bleed 2/2 ruptured esophageal varices superimposed on duodenal mass s/p emergent EGD 06/30/16 with banding of varices 4. Multiorgan failure with severe hypovolemic shock 2/2 blood loss and now probable DIC 5. Liver cirrhosis likely 2/2 hepatic steatosis versus other cause 6. Type 2 Diabetes with DKA on insulin drip 7. DNR 8. Severe hyperkalemia likely from hemolysis and renal failure PLAN: * Continue pressor support, patient is currently maxed on 4 pressors * Continue protonix and octreotide drips * serial lab monitoring and blood products as indicated * Serial BMPs * IVF with bicarb for severe acidosis * Insulin ./ d50 / Calcium for hyperkalemia: given Prognosis is very dire High probability of hypoxic brain injury versus brain Family notified about por prognosis CC gonzález >35mins Subjective 24 Hr Interval Summary Subjective hx not possible: pt non-verbal, pt critical status Exam/Review of Systems Vital Signs Vitals Vital Signs Date Time Temp Pulse Resp B/P Pulse Ox O2 Delivery O2 Flow Rate FiO2 07/01/16 07:00 48 26 36/12 97 Mechanical Ventilator 07/01/16 05:44 100 07/01/16 04:00 94.6 06/30/16 13:55 2.0 Intake and Output 06/30/16 06/30/16 07/01/16 15:00 23:00 07:00 Intake Total 3912.8 ml 3982.2 ml Output Total 0 ml 1000 ml Balance 3912.8 ml 2982.2 ml Exam Constitutional: non-verbal, obese, No alert Head: hematomas Eyes: icteric, No PERRL ENMT: intubated Respiratory: crackles/rales, diminished breath sounds, No normal air movement Cardiovascular: No regular rate and rhythm (tachy) Gastrointestinal: ascites, distended (+++), firm, other (hematomas), No bowel sounds Extremities: edema (diffuse anasarca) Neurological: unresponsive Skin: ecchymosis, other (hematomas), rash or lesions Results Result Diagram: 07/01/16 0555 07/01/16 0555 Results 24 hrs Laboratory Tests Test 06/30/16 11:15 06/30/16 12:20 06/30/16 13:13 06/30/16 14:26 Bedside Glucose 194 195 183 163 Test 06/30/16 15:58 06/30/16 16:30 06/30/16 16:50 06/30/16 17:52 Bedside Glucose 171 86 Blood Gas Specimen Source Blood arterial Arterial Blood Date Drawn 06/30/2016 6:28:14 PM Arterial Blood pH (Temp corrected) 6.660 *L Arterial Blood pCO2 (Temp correct) 47.5 H Arterial Blood pO2 (Temp corrected) 50.3 *L Arterial Blood HCO3 5.2 *L Arterial Blood Base Excess -29.6 L Arterial Blood Oxygen Saturation 62.8 L Mario Test ACCEPTAB Arterial Blood Gas Puncture Site Right Radial Arterial Blood Carboxyhemoglobin 0.3 Arterial Blood Methemoglobin 1.2 Blood Gas A-a O2 Differential 615.2 H Oxyhemoglobin Percent 61.9 L Total Hemoglobin 7.3 L Blood Gas Temperature 37.0 Blood Gas Respiration Rate 20.0 Blood Gas Actual Respiration Rate 20 Blood Gas Modality VENT - AC FiO2 100.0 Blood Gas Tidal Volume 500.0 Blood Gas Low PEEP Setting 0 Blood Gas Critical Value Read Back DR. LOERA Blood Gas Notified Whom Kevin Blood Gas Notified Time 06/30/2016 6:37:59 PM Sodium Level 141 Potassium Level 6.2 *H Chloride Level 115 H Carbon Dioxide Level 7 #*L Anion Gap 25 #H Blood Urea Nitrogen 21 H Creatinine 1.13 H Glucose Level 115 # Calcium Level 7.7 L Magnesium Level 2.2 Test 06/30/16 19:02 06/30/16 20:46 06/30/16 21:36 06/30/16 21:51 Bedside Glucose 77 227 H 176 White Blood Count 15.5 #H Red Blood Count 2.56 #L Hemoglobin 7.4 #L Hematocrit 25.2 #L Mean Corpuscular Volume 98.4 Mean Corpuscular Hemoglobin 28.9 L Mean Corpuscular Hemoglobin Concent 29.4 L Red Cell Distribution Width 15.8 H Platelet Count 111 #L Mean Platelet Volume 10.1 Neutrophils % 40.0 Band Neutrophils % 15.0 H Lymphocytes % 38.0 Monocytes % 4.0 Eosinophils % Metamyelocytes % 1.0 H Myelocytes % 2.0 H Nucleated Red Blood Cells % 10.0 H Neutrophils # 6.2 Lymphocytes # 5.9 H Monocytes # 0.6 Eosinophils # Metamyelocytes # 0.2 Myelocytes # 0.3 Sodium Level 142 Potassium Level 6.1 *H Chloride Level 120 H Carbon Dioxide Level 7 *L Anion Gap 21 H Blood Urea Nitrogen 18 Creatinine 1.12 H Glucose Level 45 #*L Calcium Level 6.8 L Total Bilirubin 0.5 Direct Bilirubin 0.00 Indirect Bilirubin 0.5 Aspartate Amino Transf (AST/SGOT) 2325 H Alanine Aminotransferase (ALT/SGPT) 1159 H Alkaline Phosphatase 165 H Total Protein 3.4 #L Albumin 1.3 L Globulin 2.10 Albumin/Globulin Ratio 0.61 Test 06/30/16 22:33 06/30/16 22:43 07/01/16 00:22 07/01/16 00:39 Bedside Glucose 148 229 H Blood Gas Specimen Source Blood arterial Arterial Blood Date Drawn 06/30/2016 10:42:08 PM Arterial Blood pH (Temp corrected) 6.959 *L Arterial Blood pCO2 (Temp correct) 51.7 H Arterial Blood pO2 (Temp corrected) 130.0 H Arterial Blood HCO3 11.3 L Arterial Blood Base Excess -19.1 L Arterial Blood Oxygen Saturation 96.9 Mario Test N/A Arterial Blood Gas Puncture Site A-Line Arterial Blood Carboxyhemoglobin 0 Arterial Blood Methemoglobin 0.8 Blood Gas A-a O2 Differential 531.3 H Oxyhemoglobin Percent 96.1 Total Hemoglobin 6.8 L Blood Gas Temperature 37.0 Blood Gas Respiration Rate 26.0 Blood Gas Actual Respiration Rate 26 Blood Gas Modality VENT - AC FiO2 100.0 Blood Gas Tidal Volume 400.0 Blood Gas Inspiratory Pressure 51.0 Blood Gas Critical Value Read Back HAILEY RN Blood Gas Notified Whom KM Blood Gas Notified Time 06/30/2016 10:51:25 PM White Blood Count 12.2 #H Red Blood Count 2.14 L Hemoglobin 6.5 *L Hematocrit 20.9 L Mean Corpuscular Volume 97.7 Mean Corpuscular Hemoglobin 30.4 Mean Corpuscular Hemoglobin Concent 31.1 L Red Cell Distribution Width 15.8 H Platelet Count 79 #L Mean Platelet Volume 9.9 Neutrophils % 50.0 Band Neutrophils % 26.0 H Lymphocytes % 15.0 Monocytes % 6.0 Eosinophils % Metamyelocytes % 2.0 H Myelocytes % 1.0 H Nucleated Red Blood Cells % 15.0 H Neutrophils # 6.1 Lymphocytes # 1.8 Monocytes # 0.7 Eosinophils # Metamyelocytes # 0.2 Myelocytes # 0.1 Platelet Estimate PLT APPEAR DECREASED Activated Partial Thromboplast Time > 180.0 *H Test 07/01/16 02:18 07/01/16 02:25 07/01/16 04:17 07/01/16 05:53 Bedside Glucose 277 H 342 H Sodium Level 137 Potassium Level 7.1 *H Chloride Level 110 # Carbon Dioxide Level 7 *L Anion Gap 27 H Blood Urea Nitrogen 17 Creatinine 1.27 H Glucose Level 261 #H Calcium Level 6.6 L Lab Scanned Report BLOOD TRANSFUSION Test 07/01/16 05:55 White Blood Count 12.6 H Red Blood Count 2.74 #L Hemoglobin 8.4 #L Hematocrit 27.4 #L Mean Corpuscular Volume 100.0 Mean Corpuscular Hemoglobin 30.7 Mean Corpuscular Hemoglobin Concent 30.7 L Red Cell Distribution Width 16.6 H Platelet Count 64 L Mean Platelet Volume 9.9 Neutrophils % Lymphocytes % Monocytes % Eosinophils % Neutrophils # Lymphocytes # Monocytes # Eosinophils # Sodium Level 134 L Potassium Level 7.7 *H Chloride Level 108 Carbon Dioxide Level 6 *L Anion Gap 28 H Blood Urea Nitrogen 16 Creatinine 1.43 H Glucose Level 371 H Calcium Level 6.3 L Total Bilirubin 0.6 Direct Bilirubin 0.00 Indirect Bilirubin 0.6 Aspartate Amino Transf (AST/SGOT) 3891 H Alanine Aminotransferase (ALT/SGPT) 1637 H Alkaline Phosphatase 142 H Total Protein 3.5 L Albumin 1.5 L Thyroid Stimulating Hormone (TSH) 2.020 Medications Medications Current Medications Miscellaneous Information 1 ea NOTE XX ; Start 06/30/16 at 10:30 Glucose (Glutose) 15 gm Q15M PRN PO DECREASED GLUCOSE; Start 06/30/16 at 10:30 Glucose (Glutose) 22.5 gm Q15M PRN PO DECREASED GLUCOSE; Start 06/30/16 at 10:30 Glucagon (Glucagen) 1 mg Q15M PRN IM DECREASED GLUCOSE; Start 06/30/16 at 10:30 Glucose (Glutose) 15 gm Q15M PRN BUCCAL DECREASED GLUCOSE; Start 06/30/16 at 10: 30 Colesevelam HCl (Welchol) 625 mg TID PO ; Start 06/30/16 at 21:00 EZETIMIBE (Zetia) 10 mg HS PO ; Start 06/30/16 at 21:00 Losartan Potassium (Cozaar) 100 mg DAILY PO ; Start 07/01/16 at 09:00 Dextrose (D50w Syringe) 50 ml Q15M PRN IV For BS 50 or less; Start 06/30/16 at 15:30 Dextrose (D50w Syringe) 25 ml Q15M PRN IV BS between 50-70; Start 06/30/16 at 15 :30 Diagnostic Test (Pha) 1 ea 1 ea Q1H XX ; Start 06/30/16 at 15:30 Sodium Chloride 1,000 ml @ 125 mls/hr Q8H PRN IV when BS is 125 mg/dl or more; Start 06/30/16 at 15:23 Dextrose/Sodium Chloride (D5-1/2ns) 1,000 ml @ 125 mls/hr Q8H PRN IV when BS is 124mg/dl or less; Start 06/30/16 at 15:23 Ondansetron HCl (Zofran Inj) 4 mg Q6H PRN IV NAUSEA AND/OR VOMITING; Start 06/30 at 15:30 Docusate Sodium (Colace) 200 mg BID PO ; Start 06/30/16 at 21:00 Amlodipine Besylate (Norvasc) 5 mg DAILY PO ; Start 07/01/16 at 09:00 Hydrochlorothiazide 12.5 mg 12.5 mg DAILY PO ; Start 07/01/16 at 09:00 Pantoprazole 80 mg/Sodium Chloride 100 ml @ 10 mls/hr Q10H IV Last administered on 07/01/16 07:00; Admin Dose 10 MLS/HR; Start 06/30/16 at 19:00 Octreotide Acetate 1 mg/ Sodium Chloride 100 ml @ 5 mls/hr Q20H IV Last administered on 06/30/16 22:45; Admin Dose 5 MLS/HR; Start 06/30/16 at 20:00 Phenylephrine HCl 250 ml @ 75 mls/hr TITRATE IV Last administered on 07/01/16 09:28; Admin Dose 225 MLS/HR; Start 06/30/16 at 20:30 Vasopressin 60 unit/Dextrose 60 ml @ 0 mls/hr Q12H IV Last administered on 09:19; Admin Dose 2.4 MLS/HR; Start 06/30/16 at 20:30 Epinephrine 4 mg/ Sodium Chloride 250 ml @ 0 mls/hr TITRATE IV ; Start 06/30/16 at 21:00 Norepinephrine 16 mg/Dextrose 500 ml @ 1.87 mls/hr TITRATE IV Last administered on 07/01/16 03:00; Admin Dose 56.25 MLS/HR; Start 06/30/16 at 22:00 Phenylephrine HCl 40 mg/Dextrose 500 ml @ 0 mls/hr TITRATE IV Last administered on 07/01/16 09:25; Admin Dose 225 MLS/HR; Start 06/30/16 at 22:00 Dopamine HCl/ Dextrose 250 ml @ 7.433 mls/ hr TITRATE IV Last administered on 07/01/16 09:17; Admin Dose 74.325 MLS/HR; Start 07/01/16 at 00:00 LAYNE HEBERT July 01, 2016 09:59
[2016-07-01] MEDS ORDERED: NA BICARBONATE 8.4% 50 ML SYG ONE (10:39)
[2016-07-01] MEDS ORDERED: NA BICARBONATE 8.4% 50 ML SYG IV STA (10:49)
--- NOTE | 2016-07-01 11:00 | CONS ---
DATE OF ADMISSION: 06/30/2016 DATE OF CONSULTATION: TYPE OF CONSULTATION: Pulmonary REASON FOR CONSULTATION: Ventilator management. Thank you, , for this consultation. HISTORY OF PRESENT ILLNESS: This is a 60-year-old lady presented to the emergency room with general ized lethargy, weakness, shortness of breath, found on admission to have a hemoglobin of 4.0. She, per chart, has apparently had a recent trip to [facility], but no prior history of GI bleeding. Duri ng her admission, she had evidence of active GI bleeding requiring emergent endoscopy which showed g rade IV esophageal varices. She was placed on Protonix drip and required aggressive resuscitation w ith blood products, included FFP and hemoglobin and subsequently required emergent intubation and me chanical ventilation. Since that time, she has been placed on multiple vasopressors. Condition con tinues to deteriorate. PAST MEDICAL HISTORY: Hypertension, hyperlipidemia, diabetes. MEDICATIONS: Per chart. ALLERGIES: NONE. SOCIAL HISTORY: Nonsmoker, no alcohol, no history of drug use. FAMILY HISTORY: Noncontributory. SYSTEMS REVIEW: A 12-point review of systems, unable to perform. PHYSICAL EXAMINATION: GENERAL: Older than age appearing lady, intubated on mechanical ventilation. Pupils are unreactive at present. VITAL SIGNS: Temperature 98, pulse is 50, blood pressure is 40/20, O2 saturation 96% on FIO2 of 100 %, orally intubated. NECK: Supple, no JVD or lymphadenopathy. CARDIAC: S1, S2, no added sounds or murmurs. CHEST: Diminished air entry bilaterally. ABDOMEN: Mildly distended. EXTREMITIES: No cyanosis, clubbing, or edema. NEUROLOGIC: Unable to assess. LABORATORIES: Bicarbonate 6, BUN 13, creatinine 1.43. White count 12.6, hemoglobin 8.4, platelets of 64. DIAGNOSTIC DATA: Chest x-ray was reviewed, shows possible left-sided infiltrate. CT abdomen shows cirrhotic liver. IMPRESSION AND PLAN: 1. Massive GI bleed. 2. Esophageal varices, grade IV. 3. Severe metabolic acidosis. 4. Hypovolemic shock. 5. Acute renal failure. 6. History of diabetes mellitus. The patient's condition continues to deteriorate and now made DNR /DNI, continues vasopressors. Overall prognosis is dismal; however, given significant metabolic aci dosis I will attempt to correct this with intravenous bicarbonate. It is unlikely that she will eloy vive this event. The family is aware. Dictated By: SERGE SOTO/HAILEY Conf#: [id number] DID#: [id number]
[2016-07-01 11:50] LABS: HEMATOCRIT 18.6 % (37.0-47.0)
[2016-07-01] MEDS: SODIUM BICARBONATE (IV ADD) 150 MEQ in DEXTROSE 5%-0.45% NACL 1,000 ML IV SCH ×2 (11:51→16:17)
[2016-07-01 11:57] LABS: HEMOGLOBIN 5.8 g/dl (12.0-16.0)
[2016-07-01] MEDS ORDERED: NORepinephrine 32 MG in DEXTROSE 5% 218 ML IV SCH (12:30)
[2016-07-01] MEDS: OCTREOTIDE 1 MG in SOD CHLORIDE 0.9% 95 ML IV SCH (12:51)
[2016-07-01] MEDS: PHENYLephrine 80 MG in DEXTROSE 5% 242 ML IV SCH ×2 (13:09→17:10)
--- NOTE | 2016-07-01 13:34 | CONS ---
Date/Time of Note Date/Time of Note DATE: 07/01/16 TIME: 13:30 Consultation Date/Type/Reason Admit Date/Time June 30, 2016 at 10:02 Initial Consult Date 06/30/16 Type of Consultation: Anesthesiology Reason for Consultation Follow up Referring Provider: LAYNE HEBERT 24 HR Interval Summary Free Text/Dictation Pt seen at bedside is POD#1 for emergent EGD with Banding x10 last night for an upper GI bleed. Pts condition is currently still critical as she is on multiple vasopressors and mechanical ventilation receiving large amounts of blood products and continuing to deteriorate. Will continue to monitor. Subjective hx not possible: pt critical Exam/Review of Systems Vital Signs Vitals Vital Signs Date Time Temp Pulse Resp B/P Pulse Ox O2 Delivery O2 Flow Rate FiO2 07/01/16 12:30 47 0 73/52 95 07/01/16 12:00 97.7 Mechanical Ventilator 07/01/16 08:00 100 06/30/16 13:55 2.0 Intake and Output 06/30/16 06/30/16 07/01/16 14:59 22:59 06:59 Intake Total 3174.4 ml 4358.2 ml Output Total 0 ml 1000 ml Balance 3174.4 ml 3358.2 ml Results Result Diagram: 07/01/16 1142 07/01/16 0555 Results 24 hrs Laboratory Tests Test 06/30/16 14:26 06/30/16 15:58 06/30/16 16:30 06/30/16 16:50 Bedside Glucose 163 171 Blood Gas Specimen Source Blood arterial Arterial Blood Date Drawn 06/30/2016 6:28:14 PM Arterial Blood pH (Temp corrected) 6.660 *L Arterial Blood pCO2 (Temp correct) 47.5 H Arterial Blood pO2 (Temp corrected) 50.3 *L Arterial Blood HCO3 5.2 *L Arterial Blood Base Excess -29.6 L Arterial Blood Oxygen Saturation 62.8 L Mario Test ACCEPTAB Arterial Blood Gas Puncture Site Right Radial Arterial Blood Carboxyhemoglobin 0.3 Arterial Blood Methemoglobin 1.2 Blood Gas A-a O2 Differential 615.2 H Oxyhemoglobin Percent 61.9 L Total Hemoglobin 7.3 L Blood Gas Temperature 37.0 Blood Gas Respiration Rate 20.0 Blood Gas Actual Respiration Rate 20 Blood Gas Modality VENT - AC FiO2 100.0 Blood Gas Tidal Volume 500.0 Blood Gas Low PEEP Setting 0 Blood Gas Critical Value Read Back DR. LOERA Blood Gas Notified Whom Kevin Blood Gas Notified Time 06/30/2016 6:37:59 PM Sodium Level 141 Potassium Level 6.2 *H Chloride Level 115 H Carbon Dioxide Level 7 #*L Anion Gap 25 #H Blood Urea Nitrogen 21 H Creatinine 1.13 H Glucose Level 115 # Calcium Level 7.7 L Magnesium Level 2.2 Test 06/30/16 17:52 06/30/16 19:02 06/30/16 20:46 06/30/16 21:36 Bedside Glucose 86 77 227 H White Blood Count 15.5 #H Red Blood Count 2.56 #L Hemoglobin 7.4 #L Hematocrit 25.2 #L Mean Corpuscular Volume 98.4 Mean Corpuscular Hemoglobin 28.9 L Mean Corpuscular Hemoglobin Concent 29.4 L Red Cell Distribution Width 15.8 H Platelet Count 111 #L Mean Platelet Volume 10.1 Neutrophils % 40.0 Band Neutrophils % 15.0 H Lymphocytes % 38.0 Monocytes % 4.0 Eosinophils % Metamyelocytes % 1.0 H Myelocytes % 2.0 H Nucleated Red Blood Cells % 10.0 H Neutrophils # 6.2 Lymphocytes # 5.9 H Monocytes # 0.6 Eosinophils # Metamyelocytes # 0.2 Myelocytes # 0.3 Sodium Level 142 Potassium Level 6.1 *H Chloride Level 120 H Carbon Dioxide Level 7 *L Anion Gap 21 H Blood Urea Nitrogen 18 Creatinine 1.12 H Glucose Level 45 #*L Calcium Level 6.8 L Total Bilirubin 0.5 Direct Bilirubin 0.00 Indirect Bilirubin 0.5 Aspartate Amino Transf (AST/SGOT) 2325 H Alanine Aminotransferase (ALT/SGPT) 1159 H Alkaline Phosphatase 165 H Total Protein 3.4 #L Albumin 1.3 L Globulin 2.10 Albumin/Globulin Ratio 0.61 Test 06/30/16 21:51 06/30/16 22:33 06/30/16 22:43 07/01/16 00:22 Bedside Glucose 176 148 Blood Gas Specimen Source Blood arterial Arterial Blood Date Drawn 06/30/2016 10:42:08 PM Arterial Blood pH (Temp corrected) 6.959 *L Arterial Blood pCO2 (Temp correct) 51.7 H Arterial Blood pO2 (Temp corrected) 130.0 H Arterial Blood HCO3 11.3 L Arterial Blood Base Excess -19.1 L Arterial Blood Oxygen Saturation 96.9 Mario Test N/A Arterial Blood Gas Puncture Site A-Line Arterial Blood Carboxyhemoglobin 0 Arterial Blood Methemoglobin 0.8 Blood Gas A-a O2 Differential 531.3 H Oxyhemoglobin Percent 96.1 Total Hemoglobin 6.8 L Blood Gas Temperature 37.0 Blood Gas Respiration Rate 26.0 Blood Gas Actual Respiration Rate 26 Blood Gas Modality VENT - AC FiO2 100.0 Blood Gas Tidal Volume 400.0 Blood Gas Inspiratory Pressure 51.0 Blood Gas Critical Value Read Back PaulinoMONTELONGO RN Blood Gas Notified Whom KM Blood Gas Notified Time 06/30/2016 10:51:25 PM White Blood Count 12.2 #H Red Blood Count 2.14 L Hemoglobin 6.5 *L Hematocrit 20.9 L Mean Corpuscular Volume 97.7 Mean Corpuscular Hemoglobin 30.4 Mean Corpuscular Hemoglobin Concent 31.1 L Red Cell Distribution Width 15.8 H Platelet Count 79 #L Mean Platelet Volume 9.9 Neutrophils % 50.0 Band Neutrophils % 26.0 H Lymphocytes % 15.0 Monocytes % 6.0 Eosinophils % Metamyelocytes % 2.0 H Myelocytes % 1.0 H Nucleated Red Blood Cells % 15.0 H Neutrophils # 6.1 Lymphocytes # 1.8 Monocytes # 0.7 Eosinophils # Metamyelocytes # 0.2 Myelocytes # 0.1 Platelet Estimate PLT APPEAR DECREASED Activated Partial Thromboplast Time > 180.0 *H Test 07/01/16 00:39 07/01/16 02:18 07/01/16 02:25 07/01/16 04:17 Bedside Glucose 229 H 277 H 342 H Sodium Level 137 Potassium Level 7.1 *H Chloride Level 110 # Carbon Dioxide Level 7 *L Anion Gap 27 H Blood Urea Nitrogen 17 Creatinine 1.27 H Glucose Level 261 #H Calcium Level 6.6 L Test 07/01/16 05:53 07/01/16 05:55 07/01/16 11:42 Lab Scanned Report BLOOD TRANSFUSION White Blood Count 12.6 H Red Blood Count 2.74 #L Hemoglobin 8.4 #L 5.8 #*L Hematocrit 27.4 #L 18.6 #L Mean Corpuscular Volume 100.0 Mean Corpuscular Hemoglobin 30.7 Mean Corpuscular Hemoglobin Concent 30.7 L Red Cell Distribution Width 16.6 H Platelet Count 64 L Mean Platelet Volume 9.9 Neutrophils % 62.0 Band Neutrophils % 20.0 H Lymphocytes % 11.0 L Monocytes % 1.0 Eosinophils % Metamyelocytes % 1.0 H Myelocytes % 3.0 H Promyelocytes % 2.0 H Nucleated Red Blood Cells % 8.0 H Neutrophils # 7.8 H Lymphocytes # 1.4 Monocytes # 0.1 L Eosinophils # Metamyelocytes # 0.1 Myelocytes # 0.4 Promyelocytes # 0.3 Differential Comment MANUAL DIFF Giant Platelets RARE Polychromasia RARE Sodium Level 134 L Potassium Level 7.7 *H Chloride Level 108 Carbon Dioxide Level 6 *L Anion Gap 28 H Blood Urea Nitrogen 16 Creatinine 1.43 H Glucose Level 371 H Calcium Level 6.3 L Total Bilirubin 0.6 Direct Bilirubin 0.00 Indirect Bilirubin 0.6 Aspartate Amino Transf (AST/SGOT) 3891 H Alanine Aminotransferase (ALT/SGPT) 1637 H Alkaline Phosphatase 142 H Total Protein 3.5 L Albumin 1.5 L Thyroid Stimulating Hormone (TSH) 2.020 Medications Medications Current Medications Miscellaneous Information 1 ea NOTE XX ; Start 06/30/16 at 10:30 Glucose (Glutose) 15 gm Q15M PRN PO DECREASED GLUCOSE; Start 06/30/16 at 10:30 Glucose (Glutose) 22.5 gm Q15M PRN PO DECREASED GLUCOSE; Start 06/30/16 at 10:30 Glucagon (Glucagen) 1 mg Q15M PRN IM DECREASED GLUCOSE; Start 06/30/16 at 10:30 Glucose (Glutose) 15 gm Q15M PRN BUCCAL DECREASED GLUCOSE; Start 06/30/16 at 10: 30 Colesevelam HCl (Welchol) 625 mg TID PO ; Start 06/30/16 at 21:00 EZETIMIBE (Zetia) 10 mg HS PO ; Start 06/30/16 at 21:00 Losartan Potassium (Cozaar) 100 mg DAILY PO ; Start 07/01/16 at 09:00 Amlodipine Besylate (Norvasc) 5 mg DAILY PO ; Start 07/01/16 at 09:00 Hydrochlorothiazide 12.5 mg 12.5 mg DAILY PO ; Start 07/01/16 at 09:00 Pantoprazole 80 mg/Sodium Chloride 100 ml @ 10 mls/hr Q10H IV Last administered on 07/01/16 07:00; Admin Dose 10 MLS/HR; Start 06/30/16 at 19:00 Octreotide Acetate 1 mg/ Sodium Chloride 100 ml @ 5 mls/hr Q20H IV Last administered on 07/01/16 12:51; Admin Dose 5 MLS/HR; Start 06/30/16 at 20:00 Vasopressin 60 unit/Dextrose 60 ml @ 0 mls/hr Q12H IV Last administered on 09:19; Admin Dose 2.4 MLS/HR; Start 06/30/16 at 20:30 Epinephrine 4 mg/ Sodium Chloride 250 ml @ 0 mls/hr TITRATE IV Last administered on 07/01/16 09:57; Admin Dose 7.5 MLS/HR; Start 06/30/16 at 21:00 Dopamine HCl/ Dextrose 250 ml @ 7.433 mls/ hr TITRATE IV Last administered on 07/01/16 12:50; Admin Dose 74.325 MLS/HR; Start 07/01/16 at 00:00 Sodium Bicarbonate 150 meq/Dextrose/ Sodium Chloride 1,150 ml @ 250 mls/hr Q4H36M IV Last administered on 07/01/16 11:51; Admin Dose 250 MLS/HR; Start 07/01/16 at 12:00 Norepinephrine 32 mg/Dextrose 250 ml @ 0.46 mls/hr TITRATE IV Last administered on 07/01/16 13:04; Admin Dose 14.06 MLS/HR; Start 07/01/16 at 12:30 Phenylephrine HCl/ Dextrose (Hossein-Syneph/D5W) 250 ml @ 18.75 mls/ hr TITRATE IV Last administered on 07/01/16 13:09; Admin Dose 56.25 MLS/HR; Start 07/01/16 at 12:30 CAREY BARBOZA July 01, 2016 13:34
[2016-07-01 14:14] LABS: AADO2 Arterial 616.8 mmHg (7.0-24.0); Arterial Base Excess -25.3 mmol/L (-3.0-3); Arterial COHb 1.3 % (0.0-3.0); Arterial Fraction of Oxyhgb 85.7 % (93.0-99.0); Arterial HCO3 5.2 mmol/L (22.0-26.0); Arterial MetHb 0.7 % (0.0-1.5); Arterial Total Hemglobin 4.6 g/dl (12.0-18.0); Blood Gas Low PEEP Setting 0 cmH2O; MODE VENT - AC
[2016-07-01 14:30] LABS: ADD SCAN DIFF NO
[2016-07-01 14:33] LABS: ABNORMAL IP MESSAGE 1; HEMATOCRIT 14.6 % (37.0-47.0); MEAN CORPUSCULAR HEMOGLOBIN 30.8 pg (29.0-33.0); MEAN CORPUSCULAR HGB CONC 30.8 g/dl (32.0-37.0); MEAN PLATELET VOLUME 10.2 fl (7.4-10.4); RED BLOOD COUNT 1.46 10^6/ul (4.20-5.40); WHITE BLOOD COUNT 7.8 10^3/ul (4.8-10.8)
[2016-07-01 14:37] LABS: ALBUMIN 1.1 g/dl (3.3-4.9); ALBUMIN/GLOBULIN RATIO 0.84; ALKALINE PHOSPHATASE 444 IU/L (42-121); ANION GAP 29 (8-16); BILIRUBIN,INDIRECT 0.3 mg/dl (0-1.1); BILIRUBIN,TOTAL 0.3 mg/dl (0.2-1.3); BLOOD UREA NITROGEN 15 mg/dl (7-20); CHLORIDE 97 mmol/L (97-110); CREATININE 1.68 mg/dl (0.44-1.00); MAGNESIUM 2.1 mg/dl (1.7-2.5); PHOSPHORUS 9.6 mg/dl (2.5-4.9); SODIUM 126 mmol/L (135-144); TOTAL PROTEIN 2.4 g/dl (6.1-8.1)
[2016-07-01 14:42] LABS: PLATELET COUNT 41 10^3/UL (140-415)
[2016-07-01 14:59] LABS: HEMOGLOBIN 4.5 g/dl (12.0-16.0); PLATELET COUNT 47 10^3/UL (140-415)
[2016-07-01 15:04] LABS: FIBRIN SPLIT PRODUCT >160 ug/ml (<10)
[2016-07-01 15:05] LABS: CARBON DIOXIDE 8 mmol/L (21-31); POTASSIUM 7.6 mmol/L (3.5-5.1)
[2016-07-01 15:06] LABS: CALCIUM 5.5 mg/dl (8.4-10.2); GLUCOSE 731 mg/dl (70-220)
[2016-07-01 15:13] LABS: PROTIME > 100.0 Sec (12.2-14.2); PT RATIO 7.8
[2016-07-01 15:14] LABS: FIBRINOGEN < 40.0 mg/dl (207-461)
[2016-07-01 15:15] LABS: INR > 6.00; THROMBIN TIME > 100.0 SEC (13.8-19.1)
[2016-07-01 15:22] LABS: PARTIAL THROMBOPLASTIN TIME > 180.0 Sec (25.0-35.0)
[2016-07-01 15:38] LABS: ASPARTATE AMINO TRANSFERASE > 7500 IU/L (15-46)
[2016-07-01 15:51] LABS: ALANINE AMINOTRANSFERASE 5722 IU/L (13-69)
[2016-07-01 16:09] LABS: D-DIMER > 10000.00 ng/ml (<460)
--- NOTE | 2016-07-01 16:40 | PN ---
Date/Time of Note Date/Time of Note DATE: 07/01/16 TIME: 16:27 Assessment/Plan VTE Prophylaxis VTE Prophylaxis Intervention: SCD's Lines/Catheters IV Catheter Type (from Nrs): Central Line Central line still needed: Yes Urinary Cath still in place: Yes Reason Cath still needed: urinary retention Assessment/Plan Assessment/Plan Assessment * Hypovolemic shock * Upper GI bleed * Actively bleeding esophageal varix in the mid to distal esophagus. Grade IV/IV esophageal varices. Post-endoscopic variceal ligation x10 pain with control of bleeding. Liver cirrhosis * Diabetes mellitus * Respiratory failure secondary Plan * continue present management Subjective 24 Hr Interval Summary Free Text/Dictation * Course reviewed with RN * Patient on quadruple pressors max * 800cc of blood suction * S/P EGD * Hemoglobin 5 Exam/Review of Systems Vital Signs Vitals Vital Signs Date Time Temp Pulse Resp B/P Pulse Ox O2 Delivery O2 Flow Rate FiO2 07/01/16 15:30 45 26 44/37 Mechanical Ventilator 07/01/16 13:00 90 07/01/16 12:00 97.7 07/01/16 08:00 100 06/30/16 13:55 2.0 Intake and Output 06/30/16 06/30/16 07/01/16 15:00 23:00 07:00 Intake Total 3912.8 ml 3982.2 ml Output Total 0 ml 1000 ml Balance 3912.8 ml 2982.2 ml Exam Constitutional: frail, obese Head: normocephalic ENMT: intubated Neck: supple Respiratory: clear to auscultation, diminished breath sounds, other (on ventilator) Cardiovascular: irregular rhythm Gastrointestinal: bowel sounds, distended, soft Extremities: other (weak pulsea) Results Result Diagram: 07/01/16 1407 07/01/16 1407 Results 24 hrs Laboratory Tests Test 06/30/16 16:30 06/30/16 16:50 06/30/16 17:52 06/30/16 19:02 Blood Gas Specimen Source Blood arterial Arterial Blood Date Drawn 06/30/2016 6:28:14 PM Arterial Blood pH (Temp corrected) 6.660 *L Arterial Blood pCO2 (Temp correct) 47.5 H Arterial Blood pO2 (Temp corrected) 50.3 *L Arterial Blood HCO3 5.2 *L Arterial Blood Base Excess -29.6 L Arterial Blood Oxygen Saturation 62.8 L Mario Test ACCEPTAB Arterial Blood Gas Puncture Site Right Radial Arterial Blood Carboxyhemoglobin 0.3 Arterial Blood Methemoglobin 1.2 Blood Gas A-a O2 Differential 615.2 H Oxyhemoglobin Percent 61.9 L Total Hemoglobin 7.3 L Blood Gas Temperature 37.0 Blood Gas Respiration Rate 20.0 Blood Gas Actual Respiration Rate 20 Blood Gas Modality VENT - AC FiO2 100.0 Blood Gas Tidal Volume 500.0 Blood Gas Low PEEP Setting 0 Blood Gas Critical Value Read Back DR. LOERA Blood Gas Notified Whom Kevin Blood Gas Notified Time 06/30/2016 6:37:59 PM Sodium Level 141 Potassium Level 6.2 *H Chloride Level 115 H Carbon Dioxide Level 7 #*L Anion Gap 25 #H Blood Urea Nitrogen 21 H Creatinine 1.13 H Glucose Level 115 # Calcium Level 7.7 L Magnesium Level 2.2 Bedside Glucose 86 77 Test 06/30/16 20:46 06/30/16 21:36 06/30/16 21:51 06/30/16 22:33 White Blood Count 15.5 #H Red Blood Count 2.56 #L Hemoglobin 7.4 #L Hematocrit 25.2 #L Mean Corpuscular Volume 98.4 Mean Corpuscular Hemoglobin 28.9 L Mean Corpuscular Hemoglobin Concent 29.4 L Red Cell Distribution Width 15.8 H Platelet Count 111 #L Mean Platelet Volume 10.1 Neutrophils % 40.0 Band Neutrophils % 15.0 H Lymphocytes % 38.0 Monocytes % 4.0 Eosinophils % Metamyelocytes % 1.0 H Myelocytes % 2.0 H Nucleated Red Blood Cells % 10.0 H Neutrophils # 6.2 Lymphocytes # 5.9 H Monocytes # 0.6 Eosinophils # Metamyelocytes # 0.2 Myelocytes # 0.3 Sodium Level 142 Potassium Level 6.1 *H Chloride Level 120 H Carbon Dioxide Level 7 *L Anion Gap 21 H Blood Urea Nitrogen 18 Creatinine 1.12 H Glucose Level 45 #*L Calcium Level 6.8 L Total Bilirubin 0.5 Direct Bilirubin 0.00 Indirect Bilirubin 0.5 Aspartate Amino Transf (AST/SGOT) 2325 H Alanine Aminotransferase (ALT/SGPT) 1159 H Alkaline Phosphatase 165 H Total Protein 3.4 #L Albumin 1.3 L Globulin 2.10 Albumin/Globulin Ratio 0.61 Bedside Glucose 227 H 176 148 Test 06/30/16 22:43 07/01/16 00:22 07/01/16 00:39 07/01/16 02:18 Blood Gas Specimen Source Blood arterial Arterial Blood Date Drawn 06/30/2016 10:42:08 PM Arterial Blood pH (Temp corrected) 6.959 *L Arterial Blood pCO2 (Temp correct) 51.7 H Arterial Blood pO2 (Temp corrected) 130.0 H Arterial Blood HCO3 11.3 L Arterial Blood Base Excess -19.1 L Arterial Blood Oxygen Saturation 96.9 Mario Test N/A Arterial Blood Gas Puncture Site A-Line Arterial Blood Carboxyhemoglobin 0 Arterial Blood Methemoglobin 0.8 Blood Gas A-a O2 Differential 531.3 H Oxyhemoglobin Percent 96.1 Total Hemoglobin 6.8 L Blood Gas Temperature 37.0 Blood Gas Respiration Rate 26.0 Blood Gas Actual Respiration Rate 26 Blood Gas Modality VENT - AC FiO2 100.0 Blood Gas Tidal Volume 400.0 Blood Gas Inspiratory Pressure 51.0 Blood Gas Critical Value Read Back MSURJIT RN Blood Gas Notified Whom KM Blood Gas Notified Time 06/30/2016 10:51:25 PM White Blood Count 12.2 #H Red Blood Count 2.14 L Hemoglobin 6.5 *L Hematocrit 20.9 L Mean Corpuscular Volume 97.7 Mean Corpuscular Hemoglobin 30.4 Mean Corpuscular Hemoglobin Concent 31.1 L Red Cell Distribution Width 15.8 H Platelet Count 79 #L Mean Platelet Volume 9.9 Neutrophils % 50.0 Band Neutrophils % 26.0 H Lymphocytes % 15.0 Monocytes % 6.0 Eosinophils % Metamyelocytes % 2.0 H Myelocytes % 1.0 H Nucleated Red Blood Cells % 15.0 H Neutrophils # 6.1 Lymphocytes # 1.8 Monocytes # 0.7 Eosinophils # Metamyelocytes # 0.2 Myelocytes # 0.1 Platelet Estimate PLT APPEAR DECREASED Activated Partial Thromboplast Time > 180.0 *H Bedside Glucose 229 H 277 H Test 07/01/16 02:25 07/01/16 04:17 07/01/16 05:53 07/01/16 05:55 Sodium Level 137 134 L Potassium Level 7.1 *H 7.7 *H Chloride Level 110 # 108 Carbon Dioxide Level 7 *L 6 *L Anion Gap 27 H 28 H Blood Urea Nitrogen 17 16 Creatinine 1.27 H 1.43 H Glucose Level 261 #H 371 H Calcium Level 6.6 L 6.3 L Bedside Glucose 342 H Lab Scanned Report BLOOD TRANSFUSION White Blood Count 12.6 H Red Blood Count 2.74 #L Hemoglobin 8.4 #L Hematocrit 27.4 #L Mean Corpuscular Volume 100.0 Mean Corpuscular Hemoglobin 30.7 Mean Corpuscular Hemoglobin Concent 30.7 L Red Cell Distribution Width 16.6 H Platelet Count 64 L Mean Platelet Volume 9.9 Neutrophils % 62.0 Band Neutrophils % 20.0 H Lymphocytes % 11.0 L Monocytes % 1.0 Eosinophils % Metamyelocytes % 1.0 H Myelocytes % 3.0 H Promyelocytes % 2.0 H Nucleated Red Blood Cells % 8.0 H Neutrophils # 7.8 H Lymphocytes # 1.4 Monocytes # 0.1 L Eosinophils # Metamyelocytes # 0.1 Myelocytes # 0.4 Promyelocytes # 0.3 Differential Comment MANUAL DIFF Giant Platelets RARE Polychromasia RARE Total Bilirubin 0.6 Direct Bilirubin 0.00 Indirect Bilirubin 0.6 Aspartate Amino Transf (AST/SGOT) 3891 H Alanine Aminotransferase (ALT/SGPT) 1637 H Alkaline Phosphatase 142 H Total Protein 3.5 L Albumin 1.5 L Thyroid Stimulating Hormone (TSH) 2.020 Test 07/01/16 11:42 07/01/16 14:00 07/01/16 14:07 Hemoglobin 5.8 #*L 4.5 #*L Hematocrit 18.6 #L 14.6 #L Blood Gas Specimen Source Blood arterial Arterial Blood Date Drawn 07/01/2016 2:00:56 PM Arterial Blood pH (Temp corrected) 6.881 *L Arterial Blood pCO2 (Temp correct) 28.4 L Arterial Blood pO2 (Temp corrected) 67.8 L Arterial Blood HCO3 5.2 *L Arterial Blood Base Excess -25.3 L Arterial Blood Oxygen Saturation 87.4 L Mario Test N/A Arterial Blood Gas Puncture Site A-Line Arterial Blood Carboxyhemoglobin 1.3 Arterial Blood Methemoglobin 0.7 Blood Gas A-a O2 Differential 616.8 H Oxyhemoglobin Percent 85.7 L Total Hemoglobin 4.6 L Blood Gas Temperature 37.0 Blood Gas Respiration Rate 12.0 Blood Gas Actual Respiration Rate 12 Blood Gas Modality VENT - AC FiO2 100.0 Blood Gas Tidal Volume 400.0 Blood Gas Low PEEP Setting 0 Blood Gas Critical Value Read Back Mckinley FOX RN Blood Gas Notified Whom JLD Blood Gas Notified Time 07/01/2016 2:14:42 PM White Blood Count 7.8 # Red Blood Count 1.46 #L Mean Corpuscular Volume 100.0 Mean Corpuscular Hemoglobin 30.8 Mean Corpuscular Hemoglobin Concent 30.8 L Red Cell Distribution Width 17.0 H Platelet Count 41 L Mean Platelet Volume 10.2 Neutrophils % Lymphocytes % Monocytes % Eosinophils % Neutrophils # Lymphocytes # Monocytes # Eosinophils # Prothrombin Time > 100.0 #H Prothrombin Time Ratio 7.8 INR International Normalized Ratio > 6.00 *H Activated Partial Thromboplast Time > 180.0 *H Thrombin Time > 100.0 H Fibrinogen < 40.0 L Plasma Fibrin Degradation Products >160 H D-Dimer > 00234.00 H Sodium Level 126 L Potassium Level 7.6 *H Chloride Level 97 # Carbon Dioxide Level 8 *L Anion Gap 29 H Blood Urea Nitrogen 15 Creatinine 1.68 H Glucose Level 731 #*H Calcium Level 5.5 *L Phosphorus Level 9.6 H Magnesium Level 2.1 Total Bilirubin 0.3 Direct Bilirubin 0.00 Indirect Bilirubin 0.3 Aspartate Amino Transf (AST/SGOT) > 7500 H Alanine Aminotransferase (ALT/SGPT) 5722 H Alkaline Phosphatase 444 #H Total Protein 2.4 #L Albumin 1.1 L Globulin 1.30 Albumin/Globulin Ratio 0.84 Medications Medications Current Medications Miscellaneous Information 1 ea NOTE XX ; Start 06/30/16 at 10:30 Glucose (Glutose) 15 gm Q15M PRN PO DECREASED GLUCOSE; Start 06/30/16 at 10:30 Glucose (Glutose) 22.5 gm Q15M PRN PO DECREASED GLUCOSE; Start 06/30/16 at 10:30 Glucagon (Glucagen) 1 mg Q15M PRN IM DECREASED GLUCOSE; Start 06/30/16 at 10:30 Glucose (Glutose) 15 gm Q15M PRN BUCCAL DECREASED GLUCOSE; Start 06/30/16 at 10: 30 Colesevelam HCl (Welchol) 625 mg TID PO ; Start 06/30/16 at 21:00 EZETIMIBE (Zetia) 10 mg HS PO ; Start 06/30/16 at 21:00 Losartan Potassium (Cozaar) 100 mg DAILY PO ; Start 07/01/16 at 09:00 Amlodipine Besylate (Norvasc) 5 mg DAILY PO ; Start 07/01/16 at 09:00 Hydrochlorothiazide 12.5 mg 12.5 mg DAILY PO ; Start 07/01/16 at 09:00 Pantoprazole 80 mg/Sodium Chloride 100 ml @ 10 mls/hr Q10H IV Last administered on 07/01/16 15:18; Admin Dose 10 MLS/HR; Start 06/30/16 at 19:00 Octreotide Acetate 1 mg/ Sodium Chloride 100 ml @ 5 mls/hr Q20H IV Last administered on 07/01/16 12:51; Admin Dose 5 MLS/HR; Start 06/30/16 at 20:00 Vasopressin 60 unit/Dextrose 60 ml @ 0 mls/hr Q12H IV Last administered on 09:19; Admin Dose 2.4 MLS/HR; Start 06/30/16 at 20:30 Epinephrine 4 mg/ Sodium Chloride 250 ml @ 0 mls/hr TITRATE IV Last administered on 07/01/16 09:57; Admin Dose 7.5 MLS/HR; Start 06/30/16 at 21:00 Dopamine HCl/ Dextrose 250 ml @ 7.433 mls/ hr TITRATE IV Last administered on 07/01/16 16:13; Admin Dose 74.325 MLS/HR; Start 07/01/16 at 00:00 Sodium Bicarbonate 150 meq/Dextrose/ Sodium Chloride 1,150 ml @ 250 mls/hr Q4H36M IV Last administered on 07/01/16 16:17; Admin Dose 250 MLS/HR; Start 07/01/16 at 12:00 Norepinephrine 32 mg/Dextrose 250 ml @ 0.46 mls/hr TITRATE IV Last administered on 07/01/16 13:04; Admin Dose 14.06 MLS/HR; Start 07/01/16 at 12:30 Phenylephrine HCl/ Dextrose (Hossein-Syneph/D5W) 250 ml @ 18.75 mls/ hr TITRATE IV Last administered on 07/01/16 13:09; Admin Dose 56.25 MLS/HR; Start 07/01/16 at 12:30 SHARLENE SESAY MD July 01, 2016 16:39
[2016-07-01 16:44] LABS: LYMPHOCYTES # 0.8 10^3/ul (0.8-2.9); MONOCYTE # 0.5 10^3/ul (0.3-0.9); MYELOCYTES # 0.1; NEUTROPHIL # 5.1 10^3/ul (1.6-7.5)
[2016-07-01 16:45] LABS: BURR CELLS FEW
[2016-07-01 16:47] LABS: ANISOCYTOSIS 1+; PLATELET ESTIMATE PLT APPEAR DECREASED
[2016-07-01] MEDS ORDERED: morphine 4 MG/ML VIAL IV STA (17:36)
--- NOTE | 2016-07-01 18:20 | QN ---
Documentation Comment Call to pronounce patient . Exam: Constitutional: other (unresponsive to deep sternal rub) Eyes: other (pupils fixed and dilated after at least 45s) Neck: other (no carotid pulses palpated or ascultated after at least 45s) Respiratory: other (no respiratory effort noted or ascultated after at least 45s) Cardiovascular: other (no cardiac pulses ascultated after at least 45s) Extremities: other (no femoral pulses palpated after at least 45s ) Neurological: unresponsive Assessment/Plan Patient Pronounced at 1819. summary per primary attending. LAYNE HEBERT July 01, 2016 18:20
--- NOTE | 2016-07-01 18:22 | DS ---
Date/Time of Note Date/Time of Note DATE: 07/01/16 TIME: 18:21 Discharge Summary Admission/Discharge Info Admit Date/Time June 30, 2016 at 10:02 Discharge Date/Time 07/01/16 Final Diagnosis 60 yo unfortunate female with 1. Acute encephalopathy 2/2 #2 with probable brain 2. Acute resp failure with acute sudden left lung collapse. Cause differentials include pulmonary emboli versus aspiration 3. 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 Multiorgan failure with severe hypovolemic shock 2/2 blood loss and now probable DIC 5. Liver cirrhosis likely 2/2 hepatic steatosis versus other cause 6. Type 2 Diabetes with DKA on insulin drip 7. DNR 8. Severe hyperkalemia likely from hemolysis and renal failure Home Meds Reported Medications Qbtdkntwho-Ovzdkikhin-AXCQ (Tribenzor) 20-5-12.5 Mg Tablet, 1 TAB PO DAILY, TAB 06/30/16 Ezetimibe* (Zetia*) 10 Mg Tablet, 10 MG PO HS, TAB 06/30/16 Sitagliptin Phos/Metformin HCl (Janumet 50-1,000 mg Tablet) 1 Each Tablet, 1 EACH PO BID, TAB 06/30/16 Naproxen* (Naproxen*) 500 Mg Tablet, 500 MG PO BID 01/27/12 Colesevelam Hcl* (Welchol*) 625 Mg Tablet, 625 MG PO TID 01/27/12 Glipizide* (Glipizide*) 10 Mg Tablet, 10 MG PO BID 01/27/12 Discontinued Reported Medications [Zetia] No Conflict Check, 10 DAILY 01/27/12 [Tribenzor] No Conflict Check, 20 DAILY 01/27/12 Sitagliptin Phos-Metformin Hcl (Janumet) 1 Tab Tablet, 1 TAB PO BID 01/27/12 Pending Labs Laboratory Tests Test 06/30/16 19:02 06/30/16 20:46 06/30/16 21:36 06/30/16 21:51 Bedside Glucose 77mg/dL (70-220) 227mg/dL (70-220) 176mg/dL (70-220) White Blood Count 15.510^3/ul (4.8-10.8) Red Blood Count 2.5610^6/ul (4.20-5.40) Hemoglobin 7.4g/dl (12.0-16.0) Hematocrit 25.2% (37.0-47.0) Mean Corpuscular Volume 98.4fl (82.0-101.0) Mean Corpuscular Hemoglobin 28.9pg (29.0-33.0) Mean Corpuscular Hemoglobin Concent 29.4g/dl (32.0-37.0) Red Cell Distribution Width 15.8% (11.5-14.5) Platelet Count 00549^3/UL (140-415) Mean Platelet Volume 10.1fl (7.4-10.4) Neutrophils % 40.0% (39.0-77.0) Band Neutrophils % 15.0% (0.0-5.0) Lymphocytes % 38.0% (15.0-51.0) Monocytes % 4.0% (0.0-11.0) Eosinophils % % (0.0-7.0) Metamyelocytes % 1.0% (0.0-0.0) Myelocytes % 2.0% (0.0-0.0) Nucleated Red Blood Cells % 10.0/100WBC (0.0-0.0) Neutrophils # 6.210^3/ul (1.6-7.5) Lymphocytes # 5.910^3/ul (0.8-2.9) Monocytes # 0.610^3/ul (0.3-0.9) Eosinophils # 10^3/ul (0.0-0.5) Metamyelocytes # 0.2 Myelocytes # 0.3 Sodium Level 142mmol/L (135-144) Potassium Level 6.1mmol/L (3.5-5.1) Chloride Level 120mmol/L (97-110) Carbon Dioxide Level 7mmol/L (21-31) Anion Gap 21 (8-16) Blood Urea Nitrogen 18mg/dl (7-20) Creatinine 1.12mg/dl (0.44-1.00) Glucose Level 45mg/dl (70-220) Calcium Level 6.8mg/dl (8.4-10.2) Total Bilirubin 0.5mg/dl (0.2-1.3) Direct Bilirubin 0.00mg/dl (0.00-0.20) Indirect Bilirubin 0.5mg/dl (0-1.1) Aspartate Amino Transf (AST/SGOT) 2325IU/L (15-46) Alanine Aminotransferase (ALT/SGPT) 1159IU/L (13-69) Alkaline Phosphatase 165IU/L (42-121) Total Protein 3.4g/dl (6.1-8.1) Albumin 1.3g/dl (3.3-4.9) Globulin 2.10g/dl (1.3-3.2) Albumin/Globulin Ratio 0.61 Test 06/30/16 22:33 06/30/16 22:43 07/01/16 00:22 07/01/16 00:39 Bedside Glucose 148mg/dL (70-220) 229mg/dL (70-220) Blood Gas Specimen Source Blood arterial Arterial Blood Date Drawn 06/30/2016 10:42:08 PM Arterial Blood pH (Temp corrected) 6.959 (7.350-7.450) Arterial Blood pCO2 (Temp correct) 51.7mmhg (35-45) Arterial Blood pO2 (Temp corrected) 130.0mmHG (80-100.0) Arterial Blood HCO3 11.3mmol/L (22.0-26.0) Arterial Blood Base Excess -19.1mmol/L (-3.0-3) Arterial Blood Oxygen Saturation 96.9mmHG (95.0-98.0) Mario Test N/A Arterial Blood Gas Puncture Site A-Line Arterial Blood Carboxyhemoglobin 0% (0.0-3.0) Arterial Blood Methemoglobin 0.8% (0.0-1.5) Blood Gas A-a O2 Differential 531.3mmHg (7.0-24.0) Oxyhemoglobin Percent 96.1% (93.0-99.0) Total Hemoglobin 6.8g/dl (12.0-18.0) Blood Gas Temperature 37.0C Blood Gas Respiration Rate 26.0 Blood Gas Actual Respiration Rate 26 Blood Gas Modality VENT - AC FiO2 100.0% Blood Gas Tidal Volume 400.0mL Blood Gas Inspiratory Pressure 51.0 Blood Gas Critical Value Read Back HAILEY RN Blood Gas Notified Whom KM Blood Gas Notified Time 06/30/2016 10:51:25 PM White Blood Count 12.210^3/ul (4.8-10.8) Red Blood Count 2.1410^6/ul (4.20-5.40) Hemoglobin 6.5g/dl (12.0-16.0) Hematocrit 20.9% (37.0-47.0) Mean Corpuscular Volume 97.7fl (82.0-101.0) Mean Corpuscular Hemoglobin 30.4pg (29.0-33.0) Mean Corpuscular Hemoglobin Concent 31.1g/dl (32.0-37.0) Red Cell Distribution Width 15.8% (11.5-14.5) Platelet Count 7910^3/UL (140-415) Mean Platelet Volume 9.9fl (7.4-10.4) Neutrophils % 50.0% (39.0-77.0) Band Neutrophils % 26.0% (0.0-5.0) Lymphocytes % 15.0% (15.0-51.0) Monocytes % 6.0% (0.0-11.0) Eosinophils % % (0.0-7.0) Metamyelocytes % 2.0% (0.0-0.0) Myelocytes % 1.0% (0.0-0.0) Nucleated Red Blood Cells % 15.0/100WBC (0.0-0.0) Neutrophils # 6.110^3/ul (1.6-7.5) Lymphocytes # 1.810^3/ul (0.8-2.9) Monocytes # 0.710^3/ul (0.3-0.9) Eosinophils # 10^3/ul (0.0-0.5) Metamyelocytes # 0.2 Myelocytes # 0.1 Platelet Estimate PLT APPEAR DECREASED Activated Partial Thromboplast Time > 180.0Sec (25.0-35.0) Test 07/01/16 02:18 07/01/16 02:25 07/01/16 04:17 07/01/16 05:53 Bedside Glucose 277mg/dL (70-220) 342mg/dL (70-220) Sodium Level 137mmol/L (135-144) Potassium Level 7.1mmol/L (3.5-5.1) Chloride Level 110mmol/L (97-110) Carbon Dioxide Level 7mmol/L (21-31) Anion Gap 27 (8-16) Blood Urea Nitrogen 17mg/dl (7-20) Creatinine 1.27mg/dl (0.44-1.00) Glucose Level 261mg/dl (70-220) Calcium Level 6.6mg/dl (8.4-10.2) Lab Scanned Report BLOOD [id number] Test 07/01/16 05:55 07/01/16 11:42 07/01/16 14:00 07/01/16 14:07 White Blood Count 12.610^3/ul (4.8-10.8) 7.810^3/ul (4.8-10.8) Red Blood Count 2.7410^6/ul (4.20-5.40) 1.4610^6/ul (4.20-5.40) Hemoglobin 8.4g/dl (12.0-16.0) 5.8g/dl (12.0-16.0) 4.5g/dl (12.0-16.0) Hematocrit 27.4% (37.0-47.0) 18.6% (37.0-47.0) 14.6% (37.0-47.0) Mean Corpuscular Volume 100.0fl (82.0-101.0) 100.0fl (82.0-101.0) Mean Corpuscular Hemoglobin 30.7pg (29.0-33.0) 30.8pg (29.0-33.0) Mean Corpuscular Hemoglobin Concent 30.7g/dl (32.0-37.0) 30.8g/dl (32.0-37.0) Red Cell Distribution Width 16.6% (11.5-14.5) 17.0% (11.5-14.5) Platelet Count 6410^3/UL (140-415) 4110^3/UL (140-415) Mean Platelet Volume 9.9fl (7.4-10.4) 10.2fl (7.4-10.4) Neutrophils % 62.0% (39.0-77.0) 65.0% (39.0-77.0) Band Neutrophils % 20.0% (0.0-5.0) 17.0% (0.0-5.0) Lymphocytes % 11.0% (15.0-51.0) 10.0% (15.0-51.0) Monocytes % 1.0% (0.0-11.0) 6.0% (0.0-11.0) Eosinophils % % (0.0-7.0) % (0.0-7.0) Metamyelocytes % 1.0% (0.0-0.0) 1.0% (0.0-0.0) Myelocytes % 3.0% (0.0-0.0) 1.0% (0.0-0.0) Promyelocytes % 2.0% (0.0-0.0) Nucleated Red Blood Cells % 8.0/100WBC (0.0-0.0) 15.0/100WBC (0.0-0.0) Neutrophils # 7.810^3/ul (1.6-7.5) 5.110^3/ul (1.6-7.5) Lymphocytes # 1.410^3/ul (0.8-2.9) 0.810^3/ul (0.8-2.9) Monocytes # 0.110^3/ul (0.3-0.9) 0.510^3/ul (0.3-0.9) Eosinophils # 10^3/ul (0.0-0.5) 10^3/ul (0.0-0.5) Metamyelocytes # 0.1 0.1 Myelocytes # 0.4 0.1 Promyelocytes # 0.3 Differential Comment MANUAL DIFF Giant Platelets RARE Polychromasia RARE Sodium Level 134mmol/L (135-144) 126mmol/L (135-144) Potassium Level 7.7mmol/L (3.5-5.1) 7.6mmol/L (3.5-5.1) Chloride Level 108mmol/L (97-110) 97mmol/L (97-110) Carbon Dioxide Level 6mmol/L (21-31) 8mmol/L (21-31) Anion Gap 28 (8-16) 29 (8-16) Blood Urea Nitrogen 16mg/dl (7-20) 15mg/dl (7-20) Creatinine 1.43mg/dl (0.44-1.00) 1.68mg/dl (0.44-1.00) Glucose Level 371mg/dl (70-220) 731mg/dl (70-220) Calcium Level 6.3mg/dl (8.4-10.2) 5.5mg/dl (8.4-10.2) Total Bilirubin 0.6mg/dl (0.2-1.3) 0.3mg/dl (0.2-1.3) Direct Bilirubin 0.00mg/dl (0.00-0.20) 0.00mg/dl (0.00-0.20) Indirect Bilirubin 0.6mg/dl (0-1.1) 0.3mg/dl (0-1.1) Aspartate Amino Transf (AST/SGOT) 3891IU/L (15-46) > 7500IU/L (15-46) Alanine Aminotransferase (ALT/SGPT) 1637IU/L (13-69) 5722IU/L (13-69) Alkaline Phosphatase 142IU/L (42-121) 444IU/L (42-121) Total Protein 3.5g/dl (6.1-8.1) 2.4g/dl (6.1-8.1) Albumin 1.5g/dl (3.3-4.9) 1.1g/dl (3.3-4.9) Thyroid Stimulating Hormone (TSH) 2.020MIU/L (0.465-4.680) Blood Gas Specimen Source Blood arterial Arterial Blood Date Drawn 07/01/2016 2:00:56 PM Arterial Blood pH (Temp corrected) 6.881 (7.350-7.450) Arterial Blood pCO2 (Temp correct) 28.4mmhg (35-45) Arterial Blood pO2 (Temp corrected) 67.8mmHG (80-100.0) Arterial Blood HCO3 5.2mmol/L (22.0-26.0) Arterial Blood Base Excess -25.3mmol/L (-3.0-3) Arterial Blood Oxygen Saturation 87.4mmHG (95.0-98.0) Maroi Test N/A Arterial Blood Gas Puncture Site A-Line Arterial Blood Carboxyhemoglobin 1.3% (0.0-3.0) Arterial Blood Methemoglobin 0.7% (0.0-1.5) Blood Gas A-a O2 Differential 616.8mmHg (7.0-24.0) Oxyhemoglobin Percent 85.7% (93.0-99.0) Total Hemoglobin 4.6g/dl (12.0-18.0) Blood Gas Temperature 37.0C Blood Gas Respiration Rate 12.0 Blood Gas Actual Respiration Rate 12 Blood Gas Modality VENT - AC FiO2 100.0% Blood Gas Tidal Volume 400.0mL Blood Gas Low PEEP Setting 0cmH2O Blood Gas Critical Value Read Back K RUDDY RN Blood Gas Notified Whom JLD Blood Gas Notified Time 07/01/2016 2:14:42 PM Platelet Estimate PLT APPEAR DECREASED Large Platelets RARE Anisocytosis 1+ Prothrombin Time > 100.0Sec (12.2-14.2) Prothrombin Time Ratio 7.8 INR International Normalized Ratio > 6.00 Activated Partial Thromboplast Time > 180.0Sec (25.0-35.0) Thrombin Time > 100.0SEC (13.8-19.1) Fibrinogen < 40.0mg/dl (207-461) Plasma Fibrin Degradation Products >160ug/ml (<10) D-Dimer > 19073.00ng/ml Phosphorus Level 9.6mg/dl (2.5-4.9) Magnesium Level 2.1mg/dl (1.7-2.5) Globulin 1.30g/dl (1.3-3.2) Albumin/Globulin Ratio 0.84 LAYNE HEBERT July 01, 2016 18:22
--- NOTE | 2016-07-01 18:35 | DES ---
Date/Time of Note Date/Time of Note DATE: 07/01/16 TIME: 18:23 Discharge/ Summary Admission/Discharge Info Admit Date/Time June 30, 2016 at 10:02 . Discharge Date/Time 07/01/16. . Final Diagnosis 60 yo unfortunate female with 1. Acute encephalopathy 2/2 #2 with probable brain 2. Acute resp failure with acute sudden left lung collapse. Cause differentials include pulmonary emboli versus aspiration 3. Severe GI bleed 2/2 ruptured esophageal varices superimposed on duodenal mass s/p emergent EGD 06/30/16 with banding of varices 4. Multiorgan failure with severe hypovolemic shock 2/2 blood loss and now probable DIC 5. Liver cirrhosis likely 2/2 hepatic steatosis versus other cause 6. Type 2 Diabetes with DKA on insulin drip 7. DNR 8. Severe hyperkalemia likely from hemolysis and renal failure . Preliminary Cause of Severe hypovolemic Shock from GI bleed . Hospital Course Full details are available in the chart forn review. In summary this unfortunate 60-year-old female that presented to emergency room with complaints of lethargy and chills. She was found to be severely anemic with a hemoglobin of 4 and also found to have hypoglycemia and metabolic acidosis. She was admitted for further workup. She was started on insulin drip and also on transfusion of packed red cells. However her hospitalization was complicated by acute respiratory failure and lung collapse and severe GI bleed. The patient became altered and obtunded and needed endotracheal intubation and ventilator support to maintain her respiratory status. She was rushed emergently to the GI lab where she was found to have profusely bleeding stage IV esophageal varices and also a probable duodenal mass and the varices were banded. However despite these emergent interventions the patient did not do well. My suspicion is that she went into DIC, continued to have severe bleeding and continued blood loss with the thrombocytopenia. She was transfused with platelets, packed red cells as well as FFP, and despite all this she continued to require pressor support. Eventually she was maxed out on 5 pressors, and on physical examination she was found to have dilated pupils which was suggestive of brain . Towards the end of her hospitalization her family decided they did not want her to suffer anymore and chose to make her a DNR and eventually they also opted for terminal extubation after which the patient a few minutes later. She was pronounced by myself at 1819 p.m. July 01, 2016. Pending Labs/Cultures Laboratory Tests Test 06/30/16 19:02 06/30/16 20:46 06/30/16 21:36 06/30/16 21:51 Bedside Glucose 77mg/dL (70-220) 227mg/dL (70-220) 176mg/dL (70-220) White Blood Count 15.510^3/ul (4.8-10.8) Red Blood Count 2.5610^6/ul (4.20-5.40) Hemoglobin 7.4g/dl (12.0-16.0) Hematocrit 25.2% (37.0-47.0) Mean Corpuscular Volume 98.4fl (82.0-101.0) Mean Corpuscular Hemoglobin 28.9pg (29.0-33.0) Mean Corpuscular Hemoglobin Concent 29.4g/dl (32.0-37.0) Red Cell Distribution Width 15.8% (11.5-14.5) Platelet Count 65821^3/UL (140-415) Mean Platelet Volume 10.1fl (7.4-10.4) Neutrophils % 40.0% (39.0-77.0) Band Neutrophils % 15.0% (0.0-5.0) Lymphocytes % 38.0% (15.0-51.0) Monocytes % 4.0% (0.0-11.0) Eosinophils % % (0.0-7.0) Metamyelocytes % 1.0% (0.0-0.0) Myelocytes % 2.0% (0.0-0.0) Nucleated Red Blood Cells % 10.0/100WBC (0.0-0.0) Neutrophils # 6.210^3/ul (1.6-7.5) Lymphocytes # 5.910^3/ul (0.8-2.9) Monocytes # 0.610^3/ul (0.3-0.9) Eosinophils # 10^3/ul (0.0-0.5) Metamyelocytes # 0.2 Myelocytes # 0.3 Sodium Level 142mmol/L (135-144) Potassium Level 6.1mmol/L (3.5-5.1) Chloride Level 120mmol/L (97-110) Carbon Dioxide Level 7mmol/L (21-31) Anion Gap 21 (8-16) Blood Urea Nitrogen 18mg/dl (7-20) Creatinine 1.12mg/dl (0.44-1.00) Glucose Level 45mg/dl (70-220) Calcium Level 6.8mg/dl (8.4-10.2) Total Bilirubin 0.5mg/dl (0.2-1.3) Direct Bilirubin 0.00mg/dl (0.00-0.20) Indirect Bilirubin 0.5mg/dl (0-1.1) Aspartate Amino Transf (AST/SGOT) 2325IU/L (15-46) Alanine Aminotransferase (ALT/SGPT) 1159IU/L (13-69) Alkaline Phosphatase 165IU/L (42-121) Total Protein 3.4g/dl (6.1-8.1) Albumin 1.3g/dl (3.3-4.9) Globulin 2.10g/dl (1.3-3.2) Albumin/Globulin Ratio 0.61 Test 06/30/16 22:33 06/30/16 22:43 07/01/16 00:22 07/01/16 00:39 Bedside Glucose 148mg/dL (70-220) 229mg/dL (70-220) Blood Gas Specimen Source Blood arterial Arterial Blood Date Drawn 06/30/2016 10:42:08 PM Arterial Blood pH (Temp corrected) 6.959 (7.350-7.450) Arterial Blood pCO2 (Temp correct) 51.7mmhg (35-45) Arterial Blood pO2 (Temp corrected) 130.0mmHG (80-100.0) Arterial Blood HCO3 11.3mmol/L (22.0-26.0) Arterial Blood Base Excess -19.1mmol/L (-3.0-3) Arterial Blood Oxygen Saturation 96.9mmHG (95.0-98.0) Mario Test N/A Arterial Blood Gas Puncture Site A-Line Arterial Blood Carboxyhemoglobin 0% (0.0-3.0) Arterial Blood Methemoglobin 0.8% (0.0-1.5) Blood Gas A-a O2 Differential 531.3mmHg (7.0-24.0) Oxyhemoglobin Percent 96.1% (93.0-99.0) Total Hemoglobin 6.8g/dl (12.0-18.0) Blood Gas Temperature 37.0C Blood Gas Respiration Rate 26.0 Blood Gas Actual Respiration Rate 26 Blood Gas Modality VENT - AC FiO2 100.0% Blood Gas Tidal Volume 400.0mL Blood Gas Inspiratory Pressure 51.0 Blood Gas Critical Value Read Back M.MONTELONGO RN Blood Gas Notified Whom KM Blood Gas Notified Time 06/30/2016 10:51:25 PM White Blood Count 12.210^3/ul (4.8-10.8) Red Blood Count 2.1410^6/ul (4.20-5.40) Hemoglobin 6.5g/dl (12.0-16.0) Hematocrit 20.9% (37.0-47.0) Mean Corpuscular Volume 97.7fl (82.0-101.0) Mean Corpuscular Hemoglobin 30.4pg (29.0-33.0) Mean Corpuscular Hemoglobin Concent 31.1g/dl (32.0-37.0) Red Cell Distribution Width 15.8% (11.5-14.5) Platelet Count 7910^3/UL (140-415) Mean Platelet Volume 9.9fl (7.4-10.4) Neutrophils % 50.0% (39.0-77.0) Band Neutrophils % 26.0% (0.0-5.0) Lymphocytes % 15.0% (15.0-51.0) Monocytes % 6.0% (0.0-11.0) Eosinophils % % (0.0-7.0) Metamyelocytes % 2.0% (0.0-0.0) Myelocytes % 1.0% (0.0-0.0) Nucleated Red Blood Cells % 15.0/100WBC (0.0-0.0) Neutrophils # 6.110^3/ul (1.6-7.5) Lymphocytes # 1.810^3/ul (0.8-2.9) Monocytes # 0.710^3/ul (0.3-0.9) Eosinophils # 10^3/ul (0.0-0.5) Metamyelocytes # 0.2 Myelocytes # 0.1 Platelet Estimate PLT APPEAR DECREASED Activated Partial Thromboplast Time > 180.0Sec (25.0-35.0) Test 07/01/16 02:18 07/01/16 02:25 07/01/16 04:17 07/01/16 05:53 Bedside Glucose 277mg/dL (70-220) 342mg/dL (70-220) Sodium Level 137mmol/L (135-144) Potassium Level 7.1mmol/L (3.5-5.1) Chloride Level 110mmol/L (97-110) Carbon Dioxide Level 7mmol/L (21-31) Anion Gap 27 (8-16) Blood Urea Nitrogen 17mg/dl (7-20) Creatinine 1.27mg/dl (0.44-1.00) Glucose Level 261mg/dl (70-220) Calcium Level 6.6mg/dl (8.4-10.2) Lab Scanned Report BLOOD [id number] Test 07/01/16 05:55 07/01/16 11:42 07/01/16 14:00 07/01/16 14:07 White Blood Count 12.610^3/ul (4.8-10.8) 7.810^3/ul (4.8-10.8) Red Blood Count 2.7410^6/ul (4.20-5.40) 1.4610^6/ul (4.20-5.40) Hemoglobin 8.4g/dl (12.0-16.0) 5.8g/dl (12.0-16.0) 4.5g/dl (12.0-16.0) Hematocrit 27.4% (37.0-47.0) 18.6% (37.0-47.0) 14.6% (37.0-47.0) Mean Corpuscular Volume 100.0fl (82.0-101.0) 100.0fl (82.0-101.0) Mean Corpuscular Hemoglobin 30.7pg (29.0-33.0) 30.8pg (29.0-33.0) Mean Corpuscular Hemoglobin Concent 30.7g/dl (32.0-37.0) 30.8g/dl (32.0-37.0) Red Cell Distribution Width 16.6% (11.5-14.5) 17.0% (11.5-14.5) Platelet Count 6410^3/UL (140-415) 4110^3/UL (140-415) Mean Platelet Volume 9.9fl (7.4-10.4) 10.2fl (7.4-10.4) Neutrophils % 62.0% (39.0-77.0) 65.0% (39.0-77.0) Band Neutrophils % 20.0% (0.0-5.0) 17.0% (0.0-5.0) Lymphocytes % 11.0% (15.0-51.0) 10.0% (15.0-51.0) Monocytes % 1.0% (0.0-11.0) 6.0% (0.0-11.0) Eosinophils % % (0.0-7.0) % (0.0-7.0) Metamyelocytes % 1.0% (0.0-0.0) 1.0% (0.0-0.0) Myelocytes % 3.0% (0.0-0.0) 1.0% (0.0-0.0) Promyelocytes % 2.0% (0.0-0.0) Nucleated Red Blood Cells % 8.0/100WBC (0.0-0.0) 15.0/100WBC (0.0-0.0) Neutrophils # 7.810^3/ul (1.6-7.5) 5.110^3/ul (1.6-7.5) Lymphocytes # 1.410^3/ul (0.8-2.9) 0.810^3/ul (0.8-2.9) Monocytes # 0.110^3/ul (0.3-0.9) 0.510^3/ul (0.3-0.9) Eosinophils # 10^3/ul (0.0-0.5) 10^3/ul (0.0-0.5) Metamyelocytes # 0.1 0.1 Myelocytes # 0.4 0.1 Promyelocytes # 0.3 Differential Comment MANUAL DIFF Giant Platelets RARE Polychromasia RARE Sodium Level 134mmol/L (135-144) 126mmol/L (135-144) Potassium Level 7.7mmol/L (3.5-5.1) 7.6mmol/L (3.5-5.1) Chloride Level 108mmol/L (97-110) 97mmol/L (97-110) Carbon Dioxide Level 6mmol/L (21-31) 8mmol/L (21-31) Anion Gap 28 (8-16) 29 (8-16) Blood Urea Nitrogen 16mg/dl (7-20) 15mg/dl (7-20) Creatinine 1.43mg/dl (0.44-1.00) 1.68mg/dl (0.44-1.00) Glucose Level 371mg/dl (70-220) 731mg/dl (70-220) Calcium Level 6.3mg/dl (8.4-10.2) 5.5mg/dl (8.4-10.2) Total Bilirubin 0.6mg/dl (0.2-1.3) 0.3mg/dl (0.2-1.3) Direct Bilirubin 0.00mg/dl (0.00-0.20) 0.00mg/dl (0.00-0.20) Indirect Bilirubin 0.6mg/dl (0-1.1) 0.3mg/dl (0-1.1) Aspartate Amino Transf (AST/SGOT) 3891IU/L (15-46) > 7500IU/L (15-46) Alanine Aminotransferase (ALT/SGPT) 1637IU/L (13-69) 5722IU/L (13-69) Alkaline Phosphatase 142IU/L (42-121) 444IU/L (42-121) Total Protein 3.5g/dl (6.1-8.1) 2.4g/dl (6.1-8.1) Albumin 1.5g/dl (3.3-4.9) 1.1g/dl (3.3-4.9) Thyroid Stimulating Hormone (TSH) 2.020MIU/L (0.465-4.680) Blood Gas Specimen Source Blood arterial Arterial Blood Date Drawn 07/01/2016 2:00:56 PM Arterial Blood pH (Temp corrected) 6.881 (7.350-7.450) Arterial Blood pCO2 (Temp correct) 28.4mmhg (35-45) Arterial Blood pO2 (Temp corrected) 67.8mmHG (80-100.0) Arterial Blood HCO3 5.2mmol/L (22.0-26.0) Arterial Blood Base Excess -25.3mmol/L (-3.0-3) Arterial Blood Oxygen Saturation 87.4mmHG (95.0-98.0) Mario Test N/A Arterial Blood Gas Puncture Site A-Line Arterial Blood Carboxyhemoglobin 1.3% (0.0-3.0) Arterial Blood Methemoglobin 0.7% (0.0-1.5) Blood Gas A-a O2 Differential 616.8mmHg (7.0-24.0) Oxyhemoglobin Percent 85.7% (93.0-99.0) Total Hemoglobin 4.6g/dl (12.0-18.0) Blood Gas Temperature 37.0C Blood Gas Respiration Rate 12.0 Blood Gas Actual Respiration Rate 12 Blood Gas Modality VENT - AC FiO2 100.0% Blood Gas Tidal Volume 400.0mL Blood Gas Low PEEP Setting 0cmH2O Blood Gas Critical Value Read Back K RUDDY RN Blood Gas Notified Whom JLD Blood Gas Notified Time 07/01/2016 2:14:42 PM Platelet Estimate PLT APPEAR DECREASED Large Platelets RARE Anisocytosis 1+ Prothrombin Time > 100.0Sec (12.2-14.2) Prothrombin Time Ratio 7.8 INR International Normalized Ratio > 6.00 Activated Partial Thromboplast Time > 180.0Sec (25.0-35.0) Thrombin Time > 100.0SEC (13.8-19.1) Fibrinogen < 40.0mg/dl (207-461) Plasma Fibrin Degradation Products >160ug/ml (<10) D-Dimer > 34926.00ng/ml Phosphorus Level 9.6mg/dl (2.5-4.9) Magnesium Level 2.1mg/dl (1.7-2.5) Globulin 1.30g/dl (1.3-3.2) Albumin/Globulin Ratio 0.84 LAYNE HEBERT July 01, 2016 18:34
== END 2016-07-01 18:19 | disposition expired | DRG 432 ==
LOC: E/R 07:08 → ICU 10:02 → E/R 20:43 → ICU 20:43
PROVIDERS: ADMIT Family Medicine; ATTEND Family Medicine
PROC: 30233N1 Transfusion of Nonautologous Red Blood Cells into Peripheral Vein, Percutaneous Approach (ICD-10-PCS; 2016-06-30)
PROC: 30233K1 Transfusion of Nonautologous Frozen Plasma into Peripheral Vein, Percutaneous Approach (ICD-10-PCS; 2016-06-30)
PROC: 0BH17EZ Insertion of Endotracheal Airway into Trachea, Via Natural or Artificial Opening (ICD-10-PCS; 2016-06-30)
PROC: 5A1935Z Respiratory Ventilation, Less than 24 Consecutive Hours (ICD-10-PCS; 2016-06-30)
PROC: 06HM33Z Insertion of Infusion Device into Right Femoral Vein, Percutaneous Approach (ICD-10-PCS; 2016-06-30)
PROC: 06L34CZ Occlusion of Esophageal Vein with Extraluminal Device, Percutaneous Endoscopic Approach (ICD-10-PCS; principal; 2016-06-30 18:30)
DX: K74.69 Other cirrhosis of liver (principal); I85.11 Secondary esophageal varices with bleeding; D65 Disseminated intravascular coagulation [defibrination syndrome]; J96.01 Acute respiratory failure with hypoxia; R57.1 Hypovolemic shock; E13.10 Other specified diabetes mellitus with ketoacidosis without coma; G93.40 Encephalopathy, unspecified; I95.9 Hypotension, unspecified; J98.19 Other pulmonary collapse; N17.9 Acute kidney failure, unspecified; D50.0 Iron deficiency anemia secondary to blood loss (chronic); I10 Essential (primary) hypertension; N19 Unspecified kidney failure; E87.5 Hyperkalemia
CPT/HCPCS: 31500; 36415; 36430; 36600; 71010; 74176; 80048; 80053; 80076; 82803; 82962; 83735; 84100; 84443; 84484; 85014; 85018; 85025; 85049; 85362; 85378; 85384; 85610; 85670; 85730; 86644; 86850; 86900; 86901; 86920; 93005; 94002; 94003; 94664; 94770; 96365; 96375; C9113; J0171; J0330; J1265; J1815; J2270; J2370; J2405; J7030; J7040; J7042; J7050; J7060; J7070; J7120; P9016; P9059